=== PATIENT | male | born 1940 | race Caucasian/White ===

== ENCOUNTER 2017-02-14 15:28 | Observation (INO) | payer MEDICARE, SELFPAY ==
--- NOTE | 2017-02-14 | CA_ITS ---
PROCEDURE: 2-D M-mode and color Doppler study INDICATIONS FOR THE TEST: Chest pain COPD Heart Murmur Tobacco Smoking Palpitations Fatigue Syncope Edema+ Hypertension+Diabetes Mellitus+ Rheumatic Fever SOB HICKMAN Obesity+Hyperlipidemia+ Family History HD+ Additional History definity contrast utilized PATIENT INFORMATION HEIGHT: 64 WEIGHT:258 GENDER: Male B/P: 138/82 2-D/M-MODE INTERPRETATION: 2-D MEASUREMENTS OBSERVED VALUES IN CMS Right Ventricular Dimension (RVDd) Interventricular Septum (Thickness)(IVsd) 1.4 Left Ventricular Internal Dimensions(LVIDd) 4.1 Left Ventricular Posterior Wall (Thickness)(LVPWd) 1.4 Aortic Root 2.9 Aortic Cusp Separation 2.2 Left Atrial Dimensions (LAD) 5.2 2D 1. Left atrium is moderately enlarged, left ventricle is normal size, there is mild concentric left ventricular hypertrophy, visually estimated ejection fraction of 50% with no obvious regional wall motion abnormality, there is abnormal septal motion. 2. The right atrium and right ventricle are relatively normal size and function. 3. The aortic valve is minimally thickened and calcified 4. The mitral valve has mitral annular calcification. 5. The tricuspid valve is structurally normal. 6. The pulmonic valve is poorly visualized. 7. No significant pericardial effusion noted. DOPPLER INTERROGATION: Doppler interrogation of the aortic, mitral and tricuspid valvular presence of mild mitral and tricuspid regurgitation, tricuspid regurgitant jet velocity is insufficient for calculation of the right ventricular systolic pressure, grade 1 diastolic dysfunction seen without tissue Doppler evidence of raised left atrial pressure. CONCLUSION: 1. Moderately enlarged atrium, normal left ventricular size, mild concentric left ventricular hypertrophy, visually estimated ejection fraction 50% with no obvious regional wall motion abnormality, there is abnormal septal motion. Grade 1 diastolic dysfunction seen without tissue Doppler evidence of raised left atrial pressure. 2. Thickened and calcified aortic valve without Doppler evidence of aortic stenosis aortic insufficiency. 3. Mild mitral and tricuspid regurgitation. 4. No significant pericardial effusion noted.
--- NOTE | 2017-02-14 15:49 | XR_ITS ---
XR chest 2V HISTORY: Shortness of breath ITS.REASON: chf ORDERING PHYSICIAN: Zander Villegas MD PATIENT AGE: 76 years COMPARISON: 10/02/2014 FINDINGS: There is mild cardiomegaly without failure. No lobar consolidation or collapse. The pericardial fat pads noted on both sides. There is slight decrease in height anteriorly of T6, T7, and T8 age-indeterminate. No previous lateral available for comparison. IMPRESSION: 1. Mild cardiomegaly without failure. 2. Minimal wedging of T6, T7 and T8 age-indeterminate
[2017-02-14 16:01] VITALS: BMI 44.3
[2017-02-14 16:27] LABS: Basophils # 0.1 K/mm3 (0-0.2); Basophils % 0.8 % (0.1-2.0); Eosinophils # 0.4 K/mm3 (0.0-0.4); Eosinophils % 4.9 % (0.1-12.0); Hematocrit 37.8 % (42.0-52.0); Hemoglobin 12.3 g/dL (14.1-18.0); Lymphocytes # 2.8 K/mm3 (0.7-4.5); Lymphocytes % 34.9 K/mm3 (10-50); Mean Corpuscular HGB Conc 32.4 g/dL (31.8-35.4); Mean Corpuscular Hemoglobin 29.5 pg (27.0-31.2); Mean Platelet Volume 7.3 fl (7.4-10.4); Monocytes # 0.4 K/mm3 (0.1-1.0); Monocytes % 5.1 % (1.7-9.3); Neutrophils # 4.3 K/mm3 (1.8-7.8); Neutrophils % 54.3 % (37.0-80.0); Platelet Count 284 K/mm3 (142-424); Red Blood Count 4.15 M/mm3 (4.60-6.20); Red Cell Distribution Width 13.2 % (11.5-17.5); White Blood Count 7.9 K/mm3 (4.8-10.8)
--- NOTE | 2017-02-14 16:31 | HMH.CARDCON2 ---
History of Present Illness Consult date: 02/14/17 Requesting physician: Zander Villegas Consult reason: congestive heart failure Chief complaint: Edema, SOA History of present illness: 76-year-old white male with history of coronary artery disease, hypertension, diabetes mellitus and hyperlipidemia was admitted from outpatient setting for increasing lower extremity edema and mild shortness of breath over the last month. Patient states his normal weight is about 225-230 pounds and currently is around 250 pounds. Does admit to dietary indiscretion and a sedentary lifestyle. Patient denies any chest discomfort, pressure or tightness with activity. His previous coronary disease consists of myocardial infarction ?2 with subsequent stenting after both times. Each time he had significant chest discomfort that resolved with coronary stenting. His last stress test was about 3 years ago without need for intervention. He usually sees Dr. Vaz or Dr. Albarado in [place]. Cardiology consulted for evaluation and recommendation. Review of Systems - Constitutional Reports weight gain - *Cardiovascular Reports shortness of breath with activity, Reports foot swelling, Denies chest pain, Denies chest pain with activity - *Respiratory Reports shortness of breath with activity [facility] History Medical History: Reports:: Coronary Artery Disease, Diabetes Mellitus Type 1 (Treated for 25 years), Hyperlipidemia, Hypertension, Myocardial Infarction (Approximately 2009) Comment: He does have obstructive sleep apnea and uses a nasal CPAP. Other Surgeries: Yes: Colonoscopy Amputation: No Fractures: No - *Social History Smoking Status: Former smoker Alcohol Intake: never Substance Use Type: denies use *Family Hx:: Cancer, Coronary Artery Disease, Stroke Meds Home Medications Medication Instructions Recorded Confirmed Type amitriptyline 50 mg tablet 50 mg PO QHS tab 02/14/17 History atorvastatin 40 mg tablet 40 mg PO QDAY 02/14/17 History carvedilol 25 mg tablet 25 mg PO BID 02/14/17 History diltiazem CD 240 mg 240 mg PO ONCE 02/14/17 History capsule,extended release 24 hr fenofibrate 40 mg tablet 200 mg PO ONCE tab 02/14/17 History furosemide 80 mg tablet 40 mg PO QDAY 02/14/17 History insulin aspart 100 unit/mL 20 unit SUB-Q QAM 02/14/17 History subcutaneous solution insulin glargine 100 unit/mL 1 unit SUB-Q ONCE 02/14/17 History subcutaneous solution metformin 1,000 mg tablet 1,000 mg PO BID 02/14/17 History terazosin 1 mg capsule 1 mg PO QDAY 02/14/17 History Allergies Allergy/AdvReac Type Severity Reaction Status Date / Time aspirin [From Kathleen Aspirin] Allergy Mild Verified 02/14/17 13:54 From PLAVIX Allergy Unknown BLEEDING Uncoded 02/14/17 13:52 From RANEXA Allergy Unknown BLEEDING Uncoded 02/14/17 13:52 Morphine Allergy Unknown Uncoded 02/14/17 13:52 Promethazine Allergy Unknown Uncoded 02/14/17 13:52 Exam - *Routine Neck Exam Absent: carotid bruit - *Routine Cardiovascular Exam Present: RRR. Absent: murmur, rubs - *Routine Extremities Exam Comments: Taught 3+ pitting edema of the lower extremities. - *Routine Neurological Exam Present: alert, oriented X3, moving all extremities Results Patient Weight 02/15/17 11:59 Weight 258 lb 7 oz Assessment and Plan (1) Congestive heart failure of unknown etiology Current visit: Yes Status: Acute Category: Medical Code(s): I50.9 - Heart failure, unspecified Recommend switching p.o. Lasix to IV and continue at 80 mg but would increase to twice daily pending renal panel. Will obtain an echocardiogram to evaluate left ventricular size and function as well as valve status. Serial cardiac enzymes overnight to evaluate for myocardial infarction and if normal then recommend obtaining a Lexiscan Myoview to evaluate for an ischemic etiology and to follow-up on the patient's history of myocardial infarction with previous coronary niurka
--- NOTE | 2017-02-14 16:35 | P.CONS_ITS ---
History of Present Illness Consult date: 02/14/17 Requesting physician: Zander Villegas Consult reason: congestive heart failure Chief complaint: Edema, SOA History of present illness: 76-year-old white male with history of coronary artery disease, hypertension, diabetes mellitus and hyperlipidemia was admitted from outpatient setting for increasing lower extremity edema and mild shortness of breath over the last month. Patient states his normal weight is about 225-230 pounds and currently is around 250 pounds. Does admit to dietary indiscretion and a sedentary lifestyle. Patient denies any chest discomfort, pressure or tightness with activity. His previous coronary disease consists of myocardial infarction ?2 with subsequent stenting after both times. Each time he had significant chest discomfort that resolved with coronary stenting. His last stress test was about 3 years ago without need for intervention. He usually sees Dr. Vaz or Dr. Albarado in [place]. Cardiology consulted for evaluation and recommendation. Review of Systems - Constitutional Reports weight gain - *Cardiovascular Reports shortness of breath with activity, Reports foot swelling, Denies chest pain, Denies chest pain with activity - *Respiratory Reports shortness of breath with activity [facility] History Medical History: Reports:: Coronary Artery Disease, Diabetes Mellitus Type 1 ( Treated for 25 years), Hyperlipidemia, Hypertension, Myocardial Infarction ( Approximately 2009) Comment: He does have obstructive sleep apnea and uses a nasal CPAP. Other Surgeries: Yes: Colonoscopy Amputation: No Fractures: No - *Social History Smoking Status: Former smoker Alcohol Intake: never Substance Use Type: denies use *Family Hx:: Cancer, Coronary Artery Disease, Stroke Meds Home Medications Medication Instructions Recorded Confirmed Type amitriptyline 50 mg tablet 50 mg PO QHS tab 02/14/17 History atorvastatin 40 mg tablet 40 mg PO QDAY 02/14/17 History carvedilol 25 mg tablet 25 mg PO BID 02/14/17 History diltiazem CD 240 mg 240 mg PO ONCE 02/14/17 History capsule,extended release 24 hr fenofibrate 40 mg tablet 200 mg PO ONCE tab 02/14/17 History furosemide 80 mg tablet 40 mg PO QDAY 02/14/17 History insulin aspart 100 unit/mL 20 unit SUB-Q QAM 02/14/17 History subcutaneous solution insulin glargine 100 unit/mL 1 unit SUB-Q ONCE 02/14/17 History subcutaneous solution metformin 1,000 mg tablet 1,000 mg PO BID 02/14/17 History terazosin 1 mg capsule 1 mg PO QDAY 02/14/17 History Allergies Allergy/AdvReac Type Severity Reaction Status Date / Time aspirin [From Kathleen Aspirin] Allergy Mild Verified 02/14/17 13:54 From PLAVIX Allergy Unknown BLEEDING Uncoded 02/14/17 13:52 From RANEXA Allergy Unknown BLEEDING Uncoded 02/14/17 13:52 Morphine Allergy Unknown Uncoded 02/14/17 13:52 Promethazine Allergy Unknown Uncoded 02/14/17 13:52 Exam - *Routine Neck Exam Absent: carotid bruit - *Routine Cardiovascular Exam Present: RRR. Absent: murmur, rubs - *Routine Extremities Exam Comments: Taught 3+ pitting edema of the lower extremities. - *Routine Neurological Exam Present: alert, oriented X3, moving all extremities Results Patient Weight 02/15/17 11:59 Weight 258 lb 7 oz Assessment and Plan (1) Congestive heart failur
[2017-02-14 16:46] LABS: CKMB Relative Index 1.3 U/L (0-4.0); Creatine Kinase 253 U/L (39-308); Creatine Kinase MB 3.2 mg/ml (0.0-3.6); Troponin I < 0.02 ng/ml (0.00-0.06)
[2017-02-14 17:00] LABS: Alanine Aminotransferase 33 U/L (12-78); Albumin Level 4.1 gm/dL (3.4-5.0); Alkaline Phosphatase 42 U/L (46-116); Anion Gap 12.9 mEq/L (5-15); Aspartate Amino Transferase 28 U/L (15-37); Bilirubin,Total 0.3 mg/dL (0.2-1.0); Blood Urea Nitrogen 29 mg/dL (7-18); Calcium 9.2 mg/dL (8.5-10.1); Carbon Dioxide 29 mmol/L (21.0-32.0); Chloride 100 mmol/L (98-107); Creatinine Clearance Estimated 23 mg/ml (0-300); Creatinine,Serum 2.36 mg/dL (0.70-1.30); Estimated Glomerular Filt Rate 27 ml/min (>60); GFR (African American) 33 ML/MIN (>60); Globulin 4.2 gm/dl (1.3-3.2); Glucose 151 mg/dL (74-106); Potassium 3.9 mmoL/L (3.5-5.1); Sodium 138 mmol/L (136-145); Total Protein,Serum 8.3 gm/dL (6.4-8.2)
[2017-02-14 17:26] VITALS: BP 150/71; PULSE 74; RESP 20; TEMP 36.7; O2SAT 96
[2017-02-14 19:25] VITALS: O2SAT 96
[2017-02-14 19:57] LABS: CKMB Relative Index 1.3 U/L (0-4.0); Creatine Kinase 266 U/L (39-308); Creatine Kinase MB 3.4 mg/ml (0.0-3.6); Troponin I < 0.02 ng/ml (0.00-0.06)
[2017-02-14 20:00] VITALS: BP 165/86; PULSE 78; RESP 18; TEMP 36.6; O2SAT 96
[2017-02-14 22:39] LABS: CKMB Relative Index 1.1 U/L (0-4.0); Creatine Kinase 248 U/L (39-308); Creatine Kinase MB 2.8 mg/ml (0.0-3.6); Troponin I < 0.02 ng/ml (0.00-0.06)
[2017-02-15 00:38] LABS: POC Glucose,Bedside 307 mg/dL
[2017-02-15 04:00] VITALS: BP 105/64; PULSE 76; RESP 16; TEMP 36.8; O2SAT 96
--- NOTE | 2017-02-15 04:33 | PC.NURSE ---
PATIENT HAS BEEN SLEEPING ON AND OFF THIS SHIFT. HE HAS BEEN NPO SINCE MIDNIGHT IN PREPARATION FOR TEST IN AM. AT 0300 ROUNDS PATIENT DID STATE THAT HE WAS HAVING A DIFFICULT TIME SLEEPING BECAUSE HE DID NOT HAVE HIS CPAP FROM HOME. PATIENT WAS TOLD THAT ONCOMING SHIFT AND MD WILL BE NOTIFIED OF THIS IN AM. PATIENT IS CURRENTLY RESTING IN BED. NO OTHER PROBLEMS NOTED AT THIS TIME. VSS. WILL CONTINUE TO MONITOR. SAFETY MEASURES IN PLACE, CALL LIGHT IN REACH.
[2017-02-15 06:47] LABS: Basophils # 0.1 K/mm3 (0-0.2); Basophils % 0.6 % (0.1-2.0); Eosinophils # 0.4 K/mm3 (0.0-0.4); Eosinophils % 4.6 % (0.1-12.0); Hematocrit 36.9 % (42.0-52.0); Hemoglobin 11.7 g/dL (14.1-18.0); Lymphocytes # 3.1 K/mm3 (0.7-4.5); Lymphocytes % 35.4 K/mm3 (10-50); Mean Corpuscular HGB Conc 31.6 g/dL (31.8-35.4); Mean Corpuscular Hemoglobin 28.8 pg (27.0-31.2); Mean Corpuscular Volume 90.9 fl (80-94); Mean Platelet Volume 7.5 fl (7.4-10.4); Monocytes # 0.5 K/mm3 (0.1-1.0); Monocytes % 5.3 % (1.7-9.3); Neutrophils # 4.7 K/mm3 (1.8-7.8); Neutrophils % 54.1 % (37.0-80.0); Platelet Count 277 K/mm3 (142-424); Red Blood Count 4.06 M/mm3 (4.60-6.20); Red Cell Distribution Width 13.3 % (11.5-17.5); White Blood Count 8.8 K/mm3 (4.8-10.8)
[2017-02-15 06:50] LABS: POC Glucose,Bedside 168 mg/dL
[2017-02-15 07:02] LABS: Alanine Aminotransferase 33 U/L (12-78); Albumin Level 3.8 gm/dL (3.4-5.0); Alkaline Phosphatase 35 U/L (46-116); Anion Gap 9.6 mEq/L (5-15); Aspartate Amino Transferase 27 U/L (15-37); Bilirubin,Total 0.4 mg/dL (0.2-1.0); Blood Urea Nitrogen 30 mg/dL (7-18); Carbon Dioxide 30 mmol/L (21.0-32.0); Chloride 102 mmol/L (98-107); Chol/HDL Ratio 5.9 (1-3.5); Cholesterol 178 mg/dL (140-200); Creatinine Clearance Estimated 22 mg/ml (0-300); Estimated Glomerular Filt Rate 27 ml/min (>60); GFR (African American) 32 ML/MIN (>60); Glucose 162 mg/dL (74-106); HDL Cholesterol 30 mg/dL (27-67); LDL Cholesterol 97 mg/dL (0-130); Magnesium 2.2 mg/dL (1.4-2.2); Phosphorous 3.6 mg/dL (2.4-4.9); Potassium 3.6 mmoL/L (3.5-5.1); Sodium 138 mmol/L (136-145); Total Protein,Serum 7.8 gm/dL (6.4-8.2); Triglycerides 256 mg/dL (30-200); VLDL Cholesterol 51 mg/dL (0-40)
--- NOTE | 2017-02-15 07:46 | P.CONPHA_ITS ---
[facility] Pharmacy VTE Monitoring - Patient Demographics Admission date: 02/14/17 Report Date: 02/15/17 Time: 07:46 Allergies/Adverse Reactions: aspirin [From Kathleen Aspirin] Allergy (Mild, Verified 02/14/17 13:54) From PLAVIX Allergy (Unknown, Uncoded 02/14/17 13:52) BLEEDING From RANEXA Allergy (Unknown, Uncoded 02/14/17 13:52) BLEEDING Morphine Allergy (Unknown, Uncoded 02/14/17 13:52) Promethazine Allergy (Unknown, Uncoded 02/14/17 13:52) Height: 1.63 m Weight: 113.908 kg Patient Problems: Current Active Problems Congestive heart failure of unknown etiology (Acute) Coronary artery disease (Chronic) Hypertension (Chronic) Hyperlipidemia (Chronic) Diabetes mellitus type 2 in obese (Acute) Obstructive sleep apnea (Acute) Obesity (Acute) - VTE Risk Labs: VTE Related Lab Results Hgb 11.7 g/dL (14.1-18.0) L 02/15/17 06:20 Hct 36.9 % (42.0-52.0) L 02/15/17 06:20 Plt Count 277 K/mm3 (142-424) 02/15/17 06:20 BUN 30 mg/dL (7-18) H 02/15/17 06:20 Creatinine 2.40 mg/dL (0.70-1.30) H 02/15/17 06:20 Estimated Creat Clear 22 mg/ml (0-300) 02/15/17 06:20 Clinical Trial Participant: No - Prophylaxis VTE Prophylaxis Ordered?: Yes Types of VTE Prophylaxis: TEDS Knee High, Refused
[2017-02-15 08:00] VITALS: RESP 18
--- NOTE | 2017-02-15 08:51 | HMH.CARDPN2 ---
Subjective PN (PG) Date: 02/15/17 Time: 07:30 Principal diagnosis: Edema, CHF, CAD Interval history: Patient off the floor for stress test. PN Exam ([facility] Owned) Vital signs: Temp Pulse Resp BP Pulse Ox 98.3 F 76 16 105/64 96 02/15/17 04:00 02/15/17 04:00 02/15/17 04:00 02/15/17 04:00 02/15/17 04:00 A/P Progress Note ([facility]) (1) Congestive heart failure of unknown etiology Status: Acute Assessment and plan: Good urine output overnight. Current Visit: Yes (2) Coronary artery disease Status: Chronic Assessment and plan: Troponins normal overnight. Stress test and echo scheduled for today. Current Visit: Yes (3) Hypertension Status: Chronic Assessment and plan: Controlled. Current Visit: Yes (4) Hyperlipidemia Status: Chronic Assessment and plan: LDL 97, HDL 51 on statin therapy. Current Visit: Yes (5) Diabetes mellitus type 2 in obese Status: Acute Current Visit: Yes (6) Obstructive sleep apnea Status: Acute Current Visit: Yes (7) Obesity Status: Acute Current Visit: Yes (8) Left bundle branch block (LBBB) on electrocardiogram Status: Acute Current Visit: Yes (9) CKD (chronic kidney disease) stage 3, GFR 30-59 ml/min Status: Acute Current Visit: Yes
--- NOTE | 2017-02-15 08:54 | P.PN_ITS ---
Subjective PN (PG) Date: 02/15/17 Time: 07:30 Principal diagnosis: Edema, CHF, CAD Interval history: Patient off the floor for stress test. PN Exam ([facility]) Vital signs: Temp Pulse Resp BP Pulse Ox 98.3 F 76 16 105/64 96 02/15/17 04:00 02/15/17 04:00 02/15/17 04:00 02/15/17 04:00 02/15/17 04:00 A/P Progress Note ([facility]) (1) Congestive heart failure of unknown etiology Status: Acute Assessment and plan: Good urine output overnight. Current Visit: Yes (2) Coronary artery disease Status: Chronic Assessment and plan: Troponins normal overnight. Stress test and echo scheduled for today. Current Visit: Yes (3) Hypertension Status: Chronic Assessment and plan: Controlled. Current Visit: Yes (4) Hyperlipidemia Status: Chronic Assessment and plan: LDL 97, HDL 51 on statin therapy. Current Visit: Yes (5) Diabetes mellitus type 2 in obese Status: Acute Current Visit: Yes (6) Obstructive sleep apnea Status: Acute Current Visit: Yes (7) Obesity Status: Acute Current Visit: Yes (8) Left bundle branch block (LBBB) on electrocardiogram Status: Acute Current Visit: Yes (9) CKD (chronic kidney disease) stage 3, GFR 30-59 ml/min Status: Acute Current Visit: Yes
--- NOTE | 2017-02-15 08:58 | PC.NURSE ---
pt off floor at this time.
--- NOTE | 2017-02-15 09:18 | HMH.ITSHM ---
AMITRIPTYLINE, ATORVASTATIN, TERAZOSIN, METFORMIN, INSULIN, FUROSEMIDE, FENOFIBRATEM CARVEDILOL, DILTIAZEM
--- NOTE | 2017-02-15 10:21 | PC.NURSE ---
pt off unit in lab support technician.
[2017-02-15 11:26] LABS: POC Glucose,Bedside 179 mg/dL
--- NOTE | 2017-02-15 13:40 | NVE_ITS ---
Venous Exam Indications: 729.81 Swelling of limb. IMPRESSIONS 1. There is no evidence of significant Reflux. 2. No evidence of deep or superficial vein thrombosis involving the right lower extremity 3. No evidence of deep or superficial vein thrombosis involving the left lower extremity History: Swelling of both lower extremities. Risk factors: Hypertension. Obese. Complete lower extremity venous duplex evaluation. Doppler flow study including spectral analysis, color and pimentel scale imaging. Location: Bedside. Patient status: Inpatient. CRITICAL FINDINGS - Reported to: Andrea GANDHI - Read back and verified. - 02/15/17 - 1415 - NONE Tables: Venous flow and imaging: + +-------+ + Location Overall Flow properties + +-------+ + Right common femoral Patent Normal phasicity; spontaneous; normal augmentation; compressible + +-------+ + Right saphenofemoral junction Patent Compressible + +-------+ + Right profunda femoral Patent Compressible + +-------+ + Right femoral Patent Normal phasicity; spontaneous; normal augmentation; compressible; no reflux + +-------+ + Right greater saphenous Patent Normal phasicity; spontaneous; normal augmentation; compressible + +-------+ + Right popliteal Patent Normal phasicity; spontaneous; normal augmentation; compressible + +-------+ + Right posterior tibial Patent Compressible + +-------+ + Right peroneal Patent Compressible + +-------+ + Right gastrocnemius Patent Compressible + +-------+ + Right soleal Patent Compressible + +-------+ + Left common femoral Patent Normal phasicity; spontaneous; normal augmentation; compressible + +-------+ + Left saphenofemoral junction Patent Compressible + +-------+ + Left profunda femoral Patent Compressible + +-------+ + Left femoral Patent Normal phasicity; spontaneous; normal augmentation; compressible + +-------+ +
--- NOTE | 2017-02-15 15:53 | HMH.HPDC ---
General - General Admission date: 02/14/17 Discharge date: 02/15/17 *Admission Date: 02/14/17 *Chief complaint: sob *History of present illness: 76-year-old white male with history of coronary artery disease, hypertension, diabetes mellitus and hyperlipidemia was admitted from outpatient setting for increasing lower extremity edema and mild shortness of breath over the last month. Patient states his normal weight is about 225-230 pounds and currently is around 250 pounds. Does admit to dietary indiscretion and a sedentary lifestyle. Patient denies any chest discomfort, pressure or tightness with activity. His previous coronary disease consists of myocardial infarction ?2 with subsequent stenting after both times. Each time he had significant chest discomfort that resolved with coronary stenting. His last stress test was about 3 years ago without need for intervention. He usually sees Dr. Vaz or Dr. Albarado in [place]. Cardiology consulted for evaluation and recommendation. [facility] History Medical History: Reports:: Coronary Artery Disease, Diabetes Mellitus Type 1 (Treated for 25 years), Diabetes Mellitus Type 2, Hyperlipidemia, Hypertension, Myocardial Infarction (Approximately 2009) Other Surgeries: Yes: Colonoscopy Amputation: No Fractures: No - *Social History Educational Level: Completed College Smoking Status: Former smoker Alcohol Intake: never Substance Use Type: denies use Occupational Status: retired Housing: house Household Members: none - Psychiatric History Expresses thoughts of harming self/others: None Suicide Plan Description: No Plan *Family Hx:: Cancer, Coronary Artery Disease, Stroke Review of Systems - Constitutional Reports weakness, Reports weight gain - *Cardiovascular Reports generalized swelling, Reports leg swelling - *Respiratory Reports chest congestion - *Musculoskeletal Reports muscle weakness Exam Vital signs and Labs for Last 24 Hours: Temp Pulse Resp BP Pulse Ox 98.3 F 76 18 105/64 96 02/15/17 04:00 02/15/17 04:00 02/15/17 08:00 02/15/17 04:00 02/15/17 04:00 Short CBC 02/14/17 02/15/17 Range/Units 16:15 06:20 WBC 7.9 8.8 (4.8-10.8) K/mm3 Hgb 12.3 L 11.7 L (14.1-18.0) g/dL Hct 37.8 L 36.9 L (42.0-52.0) % Plt Count 284 277 (142-424) K/mm3 BMP 02/14/17 02/15/17 16:15 06:20 Sodium 138 138 Potassium 3.9 3.6 Chloride 100 102 Carbon Dioxide 29 30 BUN 29 H 30 H Creatinine 2.36 H 2.40 H Glucose 151 H 162 H Calcium 9.2 9.0 Cardiac Enzymes 02/14/17 02/14/17 02/14/17 Range/Units 16:15 19:17 22:10 Total Creatine Kinase 253 266 248 (39-308) U/L CK-MB (CK-2) 3.2 3.4 2.8 (0.0-3.6) mg/ml Troponin I < 0.02 < 0.02 < 0.02 (0.00-0.06) ng/ml Liver Function 02/14/17 02/15/17 Range/Units 16:15 06:20 Total Bilirubin 0.3 0.4 (0.2-1.0) mg/dL AST 28 27 (15-37) U/L ALT 33 33 (12-78) U/L Alkaline Phosphatase 42 L 35 L (46-116) U/L Albumin 4.1 3.8 (3.4-5.0) gm/dL I & O for Last 24 hours: Intake & Output 02/13/17 02/14/17 02/15/17 02/16/17 11:59 11:59 11:59 11:59 Intake Total 0 / 0 Output Total 1450 / 1450 Balance -1450 / -1450 0 / 0 no acute distress - *Routine HEENT Exam Head: Present: normocephalic Eye: Present: PERRL ENT: Present: mucous membranes moist Comments: red devil - *Routine Neck Exam Present: supple, full ROM - *Routine Respiratory Exam Present: crackles - *Routine Cardiovascular Exam Present: RRR - *Routine Abdominal Exam Present: soft, normoactive bowel sounds - *Routine Extremities Exam Present: normal capillary refill (edema) Hospital Course Hospital Course: venous doppler- neg echo ef 50-55% cardiology consut- see note stop lisinopril cardiac work up neg Results Labs on day of discharge: Labs from last 24 hours 02/15/17 02/15/17 02/15/17 11:18 06:20 06:20 WBC 8.8 RBC 4.06 L Hgb
[2017-02-15 15:55] VITALS: BMI 42.8
--- NOTE | 2017-02-15 15:56 | P.SWB_ITS ---
General - General Admission date: 02/14/17 Discharge date: 02/15/17 *Admission Date: 02/14/17 *Chief complaint: sob *History of present illness: 76-year-old white male with history of coronary artery disease, hypertension, diabetes mellitus and hyperlipidemia was admitted from outpatient setting for increasing lower extremity edema and mild shortness of breath over the last month. Patient states his normal weight is about 225-230 pounds and currently is around 250 pounds. Does admit to dietary indiscretion and a sedentary lifestyle. Patient denies any chest discomfort, pressure or tightness with activity. His previous coronary disease consists of myocardial infarction ?2 with subsequent stenting after both times. Each time he had significant chest discomfort that resolved with coronary stenting. His last stress test was about 3 years ago without need for intervention. He usually sees Dr. Vaz or Dr. Albarado in [place]. Cardiology consulted for evaluation and recommendation. [facility] History Medical History: Reports:: Coronary Artery Disease, Diabetes Mellitus Type 1 ( Treated for 25 years), Diabetes Mellitus Type 2, Hyperlipidemia, Hypertension, Myocardial Infarction (Approximately 2009) Other Surgeries: Yes: Colonoscopy Amputation: No Fractures: No - *Social History Educational Level: Completed College Smoking Status: Former smoker Alcohol Intake: never Substance Use Type: denies use Occupational Status: retired Housing: house Household Members: none - Psychiatric History Expresses thoughts of harming self/others: None Suicide Plan Description: No Plan *Family Hx:: Cancer, Coronary Artery Disease, Stroke Review of Systems - Constitutional Reports weakness, Reports weight gain - *Cardiovascular Reports generalized swelling, Reports leg swelling - *Respiratory Reports chest congestion - *Musculoskeletal Reports muscle weakness Exam Vital signs and Labs for Last 24 Hours: Temp Pulse Resp BP Pulse Ox 98.3 F 76 18 105/64 96 02/15/17 04:00 02/15/17 04:00 02/15/17 08:00 02/15/17 04:00 02/15/17 04:00 Short CBC 02/14/17 02/15/17 Range/Units 16:15 06:20 WBC 7.9 8.8 (4.8-10.8) K/mm3 Hgb 12.3 L 11.7 L (14.1-18.0) g/dL Hct 37.8 L 36.9 L (42.0-52.0) % Plt Count 284 277 (142-424) K/mm3 BMP 02/14/17 02/15/17 16:15 06:20 Sodium 138 138 Potassium 3.9 3.6 Chloride 100 102 Carbon Dioxide 29 30 BUN 29 H 30 H Creatinine 2.36 H 2.40 H Glucose 151 H 162 H Calcium 9.2 9.0 Cardiac Enzymes 02/14/17 02/14/17 02/14/17 Range/Units 16:15 19:17 22:10 Total Creatine Kinase 253 266 248 (39-308) U/L CK-MB (CK-2) 3.2 3.4 2.8 (0.0-3.6) mg/ml Troponin I < 0.02 < 0.02 < 0.02 (0.00-0.06) ng/ml Liver Function 02/14/17 02/15/17 Range/Units 16:15 06:20 Total Bilirubin 0.3 0.4 (0.2-1.0) mg/dL AST 28 27 (15-37) U/L ALT 33 33 (12-78) U/L Alkaline Phosphatase 42 L 35 L (46-116) U/L Albumin 4.1 3.8 (3.4-5.0) gm/dL I & O for Last 24 hours: Intake & Output 02/13/17 02/14/17 02/15/17 02/16/17 11:59 11:59 11:59 11:59 Intake Total 0 / 0 Output Total 1450 / 1450 Maryam
[2017-02-15 16:00] VITALS: BP 125/66; PULSE 72; RESP 20; TEMP 36.7; O2SAT 96
--- NOTE | 2017-02-15 16:47 | NM_ITS ---
History and Indications: Coronary artery disease, hypertension, diabetes, hyperlipidemia and family history Procedure: Patient received a 0.4 mg of Lexiscan, resting heart rate was 78 bpm, resting blood pressure 135/73. With Lexiscan maximum heart rate achieved was 86 bpm which is less than 85% of the maximum predicted heart rate and a blood pressure was 129/64. With Lexiscan patient complained of shortness of breath Electrocardiogram: Resting electrocardiogram showed sinus rhythm left bundle-branch block, with Lexiscan less than 1.5 mm the segment depression noted from the baseline EKG. The EKG portion of the Lexiscan Myoview is nondiagnostic. Cardiac stress and resting SPECT images: Cardiac stress and rest SPECT images were obtained using technetium 99 Myoview 10.7 mCi at rest and 31.3 mCi at stress, gated SPECT further analysis of segmental wall motion and calculation of the ejection fraction also done. Cardiac stress and rest SPECT images show a mild fixed defect in the anteroseptal area with normal contractility in the gated SPECT is likely secondary to left bundle-branch block, no reversible ischemia seen. Computer derived ejection fraction is 59% with no obvious regional wall motion abnormality. Right ventricle is normal size and contractility. Conclusion: 1. The EKG portion of the Lexiscan Myoview is nondiagnostic. 2. No obvious scintigraphic evidence of reversible ischemia seen, a fixed defect seen anteroseptally with normal contractility on the gated SPECT is likely secondary to left bundle-branch block, no reversible ischemia seen. Computer derived ejection fraction 59% with no obvious regional wall motion abnormality, right ventricle is normal size and contractility.
[2017-02-15 19:43] VITALS: BP 115/63; PULSE 78; RESP 20; TEMP 37.1; O2SAT 94
[2017-02-15 21:30] VITALS: BP 148/77; PULSE 88; RESP 20; TEMP 36.8; O2SAT 95
[2017-02-16 04:01] LABS: POC Glucose,Bedside 163 mg/dL
[2017-02-16 04:02] LABS: POC Glucose,Bedside 257 mg/dL
== END 2017-02-15 21:35 | disposition home or self-care (01) ==
PROVIDERS: Nurse Practitioner Family; Physician Assistant; Admitting Provider Emergency Medicine; PCP Emergency Medicine; Visit Provider Emergency Medicine
DX: I13.0 Hypertensive heart and chronic kidney disease with heart failure and stage 1 through stage 4 chronic kidney disease, or unspecified chronic kidney disease (principal); N18.3 Chronic kidney disease, stage 3 (moderate); E11.22 Type 2 diabetes mellitus with diabetic chronic kidney disease; I50.9 Heart failure, unspecified; I25.10 Atherosclerotic heart disease of native coronary artery without angina pectoris
CPT/HCPCS: 36415; 71046; 78452; 80053; 80061; 82550; 82553; 82962; 83735; 83880; 84100; 84484; 85025; 93005; 93017; 93306; 93970; A9502; G0378; J2785

== ENCOUNTER → 2017-04-11 14:33 | Outpatient (POV) | payer MEDICARE, SELFPAY | PROVIDERS: PCP Emergency Medicine; Visit Provider Internal Medicine Nephrology | DX: Z00.00 Encounter for general adult medical examination without abnormal findings (principal) ==

== ENCOUNTER → 2017-05-27 15:33 | Outpatient (POV) | payer MEDICARE, SELFPAY | PROVIDERS: Visit Provider Internal Medicine Nephrology | DX: Z00.00 Encounter for general adult medical examination without abnormal findings (principal) ==

== ENCOUNTER → 2017-09-12 14:36 | Outpatient (POV) | payer MEDICARE, SELFPAY | PROVIDERS: Visit Provider Internal Medicine Nephrology | DX: Z00.00 Encounter for general adult medical examination without abnormal findings (principal) ==

== ENCOUNTER → 2018-03-31 13:47 | Outpatient (POV) | payer MEDICARE, SELFPAY | PROVIDERS: Visit Provider Internal Medicine Nephrology | DX: Z00.00 Encounter for general adult medical examination without abnormal findings (principal) ==

== ENCOUNTER 2019-03-01 16:32 | Observation (INO) ==
--- NOTE | 2019-03-01 17:38 | Emergency Department Note ---
ED Disposition Clinical Impression: Generalized weakness, Hyponatremia, Peripheral edema, Type 2 diabetes mellitus with hyperosmolar nonketotic hyperglycemia Chronic kidney disease Qualifiers: Chronic kidney disease stage: unspecified stage Qualified Code(s): N18.9 - Chronic kidney disease, unspecified Disposition: Admitted as Observation Condition on Discharge: Fair (Stable) Time of Disposition: 19:15 - Critical Care Critical Care Time: No Attestation: On 03/01/19, the high probability of a clinically significant, sudden or life threatening deterioration of the following system(s) required my full and direct attention, intervention and personal management. The time I documented below is in addition to time spent performing reported procedures but includes the following listed in this critical care notation. Medical Decision Making - Medical Records Medical records reviewed: Yes: I reviewed the patient's medical records. - Macho Inquiry Pt receiving controlled substance: No Macho was queried for this patient: No Vital Signs: 03/01/19 16:40 03/01/19 18:51 03/01/19 19:57 Temperature 98.0 F 98.1 F Temperature Source Oral Oral Pulse Rate 81 Pulse Rate [Left Radial] 125 H 107 H Respiratory Rate 18 20 19 Blood Pressure 172/75 H Blood Pressure [Left Arm] 134/79 129/91 H Blood Pressure Mean [Left Arm] 97 103 Blood Pressure Source Automatic Cuff Blood Pressure Source [Left Arm] Automatic Cuff Automatic Cuff Blood Pressure Position Sitting Blood Pressure Position [Left Arm] Sitting Sitting 02 Sat by Pulse Oximetry 97 98 Oxygen Delivery Method Room Air Room Air Room Air Oxygen Flow Rate (LPM) 0 - Lab Data Lab results reviewed: Yes: I reviewed the patient's lab results. Lab Results 03/01/19 17:35: WBC 8.1, RBC 5.16, Hgb 15.2, Hct 46.6, MCV 90.3, MCH 29.5, MCHC 32.6, RDW 13.3, Plt Count 195, MPV 7.7, Neut % (Auto) 71.3, Lymph % (Auto) 21.7, [place] % (Auto) 4.3, Eos % (Auto) 2.2, Baso % (Auto) 0.4, Neut # (Auto) 5.8, Lymph # (Auto) 1.8, [place] # (Auto) 0.4, Eos # (Auto) 0.2, Baso # (Auto) 0.0 03/01/19 17:35: Sodium 128 L, Potassium 4.1, Chloride 92 L, Carbon Dioxide 25, Anion Gap 15.1 H, BUN 32 H, Creatinine 2.28 H, Estimated Creat Clear 35, Estimated GFR 28 L, Est GFR ( Amer) 34 L, Glucose 609 H*, Calcium 8.9, Total Bilirubin 0.5, AST 14 L, ALT 18, Alkaline Phosphatase 121 H, Troponin I < 0.02, Total Protein 6.9, Albumin 3.4, Globulin 3.5 H, Albumin/Globulin Ratio 1.0 L, TSH 2.89 03/01/19 17:35: Magnesium 1.8 03/01/19 17:35: B-Natriuretic Peptide 109 H 03/01/19 17:35: Total Creatine Kinase 137, Acetone Level None detected 03/01/19 18:53: Urine Color Yellow, Urine Appearance Clear, Urine pH 5.5, Ur Specific [place] 1.015, Urine Protein 2+, Urine Glucose (UA) 3+, Urine Ketones Negative, Urine Blood 1+, Urine Nitrate Negative, Urine Bilirubin Negative, Urine Urobilinogen 0.2, Ur Leukocyte Esterase Negative, Urine RBC 3-5, Ur Squa mous Epith Cells Occasional 03/01/19 19:20: Troponin I < 0.02 03/01/19 19:20: Lactate 1.5 Result diagrams: 03/01/19 17:35 03/01/19 17:35 Orders (Tests/Meds): ED MEDICATIONS Generic Name Dose Route Start Last Admin Trade Name Kenroyq PRN Reason Stop Dose Admin Aspirin 81 mg 03/02/19 09:00 Aspirin 81mg Enteric Coated Tablet PO 04/01/19 08:59 DAILY [facility] Atorvastatin Calcium 40 mg 03/01/19 21:00 Lipitor 40mg Tablet PO 03/31/19 20:59 HS [facility] Carvedilol 25 mg 03/01/19 21:00 Coreg 25mg Tablet PO 03/31/19 20:59 BID [facility] Diltiazem HCl 240 mg 03/02/19 09:00 Cardizem Er 240mg Capsule PO 04/01/19 08:59 DAILY [facility] Sodium Chloride 1,000 mls @ 999 mls/hr 03/01/19 17:45 03/01/19 17:43 Sod Chlor 0.9% 1000ml Bag IV 03/01/19 18:45 999 mls/hr .Q1H1M [facility] Administration Sodium Chloride 1,000 mls @ 80 mls/hr 03/01/19 19:30 Sod Chlor 0.9% 1000ml Bag IV 03/31/19 19:29 .[id number] [facility] Insulin Human Lispro 0 unit 03/01/19 21:00 Humalog 100 Units/Ml 3ml Vial (Ssi) SQ 03/31/19 20:59 ACHS [facility] Protocol Non-Formulary Medication 200 mg 03/02/19 09:00 Fenofibrate,Micronized [Fenofibrate] PO 04/01/19 08:59 DAILY [facility] Non-Formulary Medication 40 unit 03/01/19 21:00 Insulin Glargine,Hum.Rec.Anlog [Toujeo Solostar] SQ 03/31/19 20:59 HS [facility] Ondansetron HCl 4 mg 03/01/19 19:16 Zofran 4mg/2ml Vial IV 03/31/19 19:15 Q8HP PRN Nausea Discontinued Medications Generic Name Dose Route Start Last Admin Trade Name Freq PRN Reason Stop Dose Admin Insulin Human Regular 12 unit 03/01/19 18:52 03/01/19 18:56 Humulin R Insulin 100 Units/Ml 10ml Vial IVP 03/01/19 18:53 12 unit ONCE ONE Administration ORDERS Category Date Time Status XR hip LT 2-3V w/pelvis Stat Exams 03/01/19 16:54 Taken Basic Metabolic Panel AMLAB Lab 03/02/19 06:00 Ordered Troponin I Q3H Lab 03/01/19 23:00 Ordered - CT Data CT Scan: Head (w/o IV contrast) Time Received: 18:[address] Reviewed: Yes: I have viewed the radiologist's interpretation Findings Narrative: [facility] [address] [place] [address] [place] Scan Report Signed Patient: Erich Augustine MR#: [id number] : 1940 Acct:[id number] Age/Sex: 78 / M ADM Date: 03/01/19 Loc: ER Attending Dr: Ordering Physician: Nixon Cote III, DO Date of Service: 03/01/19 Procedure(s): CT head/brain wo con Accession Number(s): [id number] cc: Brian Hidalgo ; Nixon Cote III DO; Zadner Villegas MD~ PROCEDURE: CT HEAD/BRAIN WO CON CLINICAL INDICATION: Weakness, frequent falls COMPARISON: No exams were available for comparison TECHNIQUE: Axial images obtained. All CT scans at the facility use one or more dose reduction, viz: automated exposure control, ma/kV adjustment per patient size (including targeted exams where dose is matched to indication, i.e. head), or iterative reconstruction technique. FINDINGS: No midline shift, mass effect, intracranial hemorrhage, hydrocephalus, or extra-axial fluid collection is evident. There is mild or borderline ventriculomegaly. The sylvian fissures and cortical sulci are somewhat prominent. There are mild atrophic changes of the cerebellar hemispheres. There is a non recent ischemic infarct high in the right frontal parietal lobe adjacent to the frontal horn right lateral ventricle. There are mild periventricular hypodensities consistent with chronic ischemic white matter changes. The calvarium has an unremarkable appearance. No mastoid effusion. No sinus air-fluid level. IMPRESSION: Findings of moderate cerebral and and mild cerebellar atrophy, non recent ischemic infarct as described, no acute intra cranial pathology noted Dictated by: Dr. Heber Hidalgo MD 03/01/2019 18:[address] Heber Hidalgo MD in [place] 03/01/2019 18:32 - ECG Data Tracing #1 I reviewed this ECG and interpreted as documented below: (EKG 5:44 PM showed sinus tachycardia, changes consistent with possible left atrial enlargement, nonspecific intraventricular block and T wave changes possibly consistent with lateral ischemia. Heart rate was 120 bpm.) Medical Decision Narrative: 18:56 patient evaluated. EKG and chest x-ray reviewed. CT head report reviewed and no acute changes noted. Patient is labs reviewed and he is noted to have hypo-natremia at 128 and hypochloremia at 92. His anion gap is 15.1. Patient clinically appears to be dry. He has chronic kidney disease and his BUN is 32 and creatinine 2.28 today. X-ray of left hip and pelvis do not show any apparent fracture upon my review. IV fluids are infusing. I have subsequently ordered a lactic acid and a CPK on this patient. Patient's glucose was elevated over 600 so I did order 12 units of regular insulin IV push. I have paged Dr. Corral to discuss admission. 19:[address] Corral and he has agreed to admit pt. Patient is aware of results of his work-up, diagnosis and care plan. Patient understands and agrees. All questions answered. Fall HPI - General Chief Complaint: Fall Stated Complaint: weakness,pain in legs Time Seen by Provider: 03/01/19 17:38 Mode of Arrival: Wheelchair Limitations: No Limitations Description of Symptoms (Recalled from ER Triage Doc. by RN): Pt reporting generalized weakness, being off balance, falls x2 in the past week and LLE pain. Abrasion noted to L valente area r/t fall. Pt report most recent fall was yesterday in the bath tub. 2+ edema noted to BLE - History of Present Illness HPI Narrative: Patient is here in emergency room from home via private vehicle accompanied by friends that brought him here. Patient is here complaining having generalized weakness that sounds like it has been developing over the past 2 to 3 weeks. Patient states that he feels off balance all the time and has been having difficulty ambulating. Patient states he fell a couple weeks ago and then several days ago outside. He was unable to get up when he fell several days ago and needed assistance from a person passing by. Patient also fell in his tub 2 weeks ago as noted above. Patient denies having sustained a head injury in either fall. He has no headache or neck pain no chest pain or shortness of breath. Patient has not been taking his medicines over the past couple days as prescribed although he has continued to eat. He also is complaining having some discomfort in the left lateral hip and proximal thigh area, which began after his latest fall outside. No other complaints. - Related Data Home Medications Medication Instructions Recorded Confirmed atorvastatin 40 mg tablet 40 mg PO HS 02/14/17 03/01/19 carvedilol 25 mg tablet 25 mg PO BID 02/14/17 03/01/19 diltiazem HCl 240 mg 240 mg PO DAILY 02/14/17 03/01/19 capsule,extended release 24 hr furosemide 80 mg tablet 80 mg PO QDAY 02/14/17 03/01/19 Fenofibrate,Micronized 200 mg PO DAILY 02/15/17 03/01/19 [Fenofibrate] Aspirin [Aspir 81] 81 mg PO DAILY 03/01/19 03/01/19 Insulin Glargine,Hum.rec.anlog 0 unit SQ DIRECTED 03/01/19 03/01/19 [Toukarey Solostar] Allergies Allergy/AdvReac Type Severity Reaction Status Date / Time aspirin [From Kathleen Aspirin] Allergy Mild Verified 03/01/19 17:03 From PLAVIX Allergy Unknown BLEEDING Uncoded 02/19/17 11:01 From RANEXA Allergy Unknown BLEEDING Uncoded 02/19/17 11:01 Morphine Allergy Unknown Uncoded 02/19/17 11:01 Promethazine Allergy Unknown Uncoded 02/19/17 11:01 [facility] History - Hepatitis A Screen Drug use history?: No High risk sexual behaviors?: No History of sexually transmitted infection?: No Currently employed?: No Childcare worker?: No Do you have indoor plumbing?: Yes Do you have electricity?: Yes Attestation statement:: This patient has been screened for Hepatitis A risk factors. I have reviewed the patient's past medical history: Yes Medical History: Reports:: Cancer (colon), Coronary Artery Disease, Diabetes Mellitus Type 1, Diabetes Mellitus Type 2, Hyperlipidemia, Hypertension, M yocardial Infarction Comment: He does have obstructive sleep apnea and uses a nasal CPAP. Other Surgeries: Yes: Cardiac Catheterization, Colonoscopy, Coronary Stent Amputation: No Fractures: No Comment: stents in heart, gallbladder, reconstruction of ear drum, colon surgery, right wrist - Social History Smoking Status: Former smoker Alcohol Intake: never Substance Use Type: denies use Occupational Status: retired Housing: house Household Members: none Family Hx:: Cancer, Coronary Artery Disease, Stroke ROS Obtained: Yes All systems reviewed & no additional complaints - Constitutional Constitutional: Reports system reviewed and no additional complaints, except as docu, Reports as per HPI, Reports fatigue, Reports frequent falls, Denies headache(s) - Eyes Eyes: Reports system reviewed and no additional complaints, except as docu - ENT Ears, Nose, Mouth, and Throat: Reports system reviewed and no additional complaints, except as docu - Cardiovascular Cardiovascular: Reports system reviewed and no additional complaints, except as docu, Reports as per HPI, Denies chest pain, Reports leg edema (Increase in lower leg and foot swelling.) - Respiratory Respiratory: Yes system reviewed and no additional complaints, except as docu, Yes as per HPI, No cough, No dyspnea - Gastrointestinal Gastrointestingal: Reports: system reviewed and no additional complaints, except as docu. Denies: abdominal pain, constipation, diarrhea, nausea, vomiting - Genitourinary Male Genitourinary: Reports system reviewed and no additional complaints, except as docu - Musculoskeletal Musculoskeletal: Reports system reviewed and no additional complaints, except as docu, Reports as per HPI, Reports other (Left hip and proximal/lateral left thigh pain.) - Integumentary/Breasts Skin/Breast: Reports system reviewed and no additional complaints, except as docu, Reports dry skin, Denies rash - Neurologic Neurologic: Reports system reviewed and no additional complaints, except as docu, Reports as per HPI, Reports unsteadiness, Reports weakness (generalized) - Endocrine Endocrine: Reports system reviewed and no additional complaints, except as docu - Hematologic/Lymphatic Henatologic/Lymphatic: Reports system reviewed and no additional complaints, except as docu - Allergic/Immunologic Allergic/Immunologic: Reports system reviewed and no additional complaints, except as docu Physical Exam - General General appearance: alert, in no apparent distress - Head Head exam: atraumatic, normocephalic, normal inspection - Eye Eye exam: Present: PERRL, EOMI - ENT ENT exam: Present: mucous membranes dry - Neck Neck exam: Present: trachea midline - Chest Chest inspection: Present: normal inspection, symmetric chest wall rise - Respiratory Respiratory exam: Present: normal lung sounds bilaterally. Absent: respiratory distress, wheezes - Cardiovascular Cardiovascular exam: Present: tachycardia, normal heart sounds. Absent: rubs, gallop, clicks - Abdominal Exam Abdominal exam: Present: soft, normal bowel sounds. Absent: distention, tenderness, guarding, rebound, rigidity, Gregory's sign, tenderness at McBurney's Point - Extremities Exam Extremities exam: Present: full ROM, normal capillary refill, other (Patient has 3-4+ pitting edema to the distal two thirds of his legs bilaterally.) - Back Exam Back exam: Present: normal inspection - Neurological Exam Neurological exam: Present: alert, oriented X3, CN II-XII intact - Psychiatric Psychiatric exam: Present: normal affect, normal mood - Skin Skin exam: Present: warm, dry, intact, other (Decreased turgor). Absent: rash
[2019-03-01 17:49] LABS: Basophils % 0.4 % (0.1-2.0); Eosinophils # 0.2 K/mm3 (0.0-0.4); Eosinophils % 2.2 % (0.1-12.0); Hematocrit 46.6 % (42.0-52.0); Hemoglobin 15.2 g/dL (14.1-18.0); Lymphocytes # 1.8 K/mm3 (0.7-4.5); Lymphocytes % 21.7 % (10-50); Mean Corpuscular HGB Conc 32.6 g/dL (31.8-35.4); Mean Corpuscular Volume 90.3 fl (80-94); Mean Platelet Volume 7.7 fl (7.4-10.4); Monocytes # 0.4 K/mm3 (0.1-1.0); Monocytes % 4.3 % (1.7-9.3); Neutrophils # 5.8 K/mm3 (1.8-7.8); Neutrophils % 71.3 % (37.0-80.0); Platelet Count 195 K/mm3 (142-424); Red Blood Count 5.16 M/mm3 (4.60-6.20); Red Cell Distribution Width 13.3 % (11.5-17.5); White Blood Count 8.1 K/mm3 (4.8-10.8)
[2019-03-01 18:10] LABS: Alanine Aminotransferase 18 U/L (12-78); Albumin Level 3.4 gm/dL (3.4-5.0); Alkaline Phosphatase 121 U/L (46-116); Anion Gap 15.1 mEq/L (5-15); Aspartate Amino Transferase 14 U/L (15-37); Bilirubin,Total 0.5 mg/dL (0.2-1.0); Blood Urea Nitrogen 32 mg/dL (7-18); Calcium 8.9 mg/dL (8.5-10.1); Carbon Dioxide 25 mmol/L (21.0-32.0); Chloride 92 mmol/L (98-107); Globulin 3.5 gm/dl (1.3-3.2); Sodium 128 mmol/L (136-145); Thyroid Stimulating Hormone 2.89 uIU/ml (0.358-3.740); Total Protein,Serum 6.9 gm/dL (6.4-8.2)
[2019-03-01 18:14] LABS: Glucose 609 mg/dL (74-106)
[2019-03-01 18:43] LABS: Acetone, Serum (Rapid) None Detected (None Detect)
[2019-03-01 19:04] LABS: Microscopic, Urine URINE MICROSCOPIC (MICROSCOPIC)
[2019-03-01 19:07] LABS: Appearance,Urine CLEAR (Clear); Bilirubin,Urine Negative (Negative); Blood, Urine 1+ (Negative); Color,Urine YELLOW (Yellow); Glucose,Urine (UA) 3+ (Negative); Ketones,Urine Negative (Negative); Leukocyte Esterase,Urine Negative (Negative); PH,Urine 5.5 (5.0-8.5); Protein,Urine 2+ (Negative); Specific Gravity, Urine 1.015 (1.005-1.030); Urobilinogen,Urine 0.2 EU/dl (0.2)
[2019-03-01 19:13] LABS: Creatine Kinase 137 U/L (39-308)
[2019-03-01 19:15] LABS: Squamous Epithelial Cell,Urine Occasional #/hpf (0-5)
[2019-03-02 06:25] LABS: Anion Gap 10.5 mEq/L (5-15); Calcium 8.2 mg/dL (8.5-10.1)
--- NOTE | 2019-03-02 07:21 | Pharmacy Consult Notes ---
[facility] Pharmacy VTE Monitoring - Patient Demographics Admission date: 03/01/19 Report Date: 03/02/19 Time: 07:20 Allergies/Adverse Reactions: Patient Allergies aspirin [From Kathleen Aspirin] Adverse Reaction (Mild, Verified 03/01/19 21:22) Abdominal Pain From PLAVIX Adverse Reaction (Severe, Uncoded 03/01/19 21:22) Chest Pain From RANEXA Adverse Reaction (Intermediate, Uncoded 03/01/19 21:22) Vomiting Morphine Adverse Reaction (Intermediate, Uncoded 03/01/19 21:22) diaphoretic Promethazine Adverse Reaction (Intermediate, Uncoded 03/01/19 21:22) Vomiting Height: 1.63 m Weight: 93.242 kg Patient Problems: Current Active Problems Generalized weakness (Acute) Hyponatremia (Acute) Chronic kidney disease (Acute) Peripheral edema (Acute) Type 2 diabetes mellitus with hyperosmolar nonketotic hyperglycemia (Acute) - VTE Risk Labs: VTE Related Lab Results Hgb 15.2 g/dL (14.1-18.0) 03/01/19 17:35 Hct 46.6 % (42.0-52.0) 03/01/19 17:35 Plt Count 195 K/mm3 (142-424) 03/01/19 17:35 BUN 30 mg/dL (7-18) H 03/02/19 05:36 Creatinine 1.85 mg/dL (0.70-1.30) H 03/02/19 05:36 Estimated Creat Clear 44 mL/min (50-200) 03/02/19 05:36 Was VTE Risk Assessment Performed: Yes VTE Score: 12 VTE Risk Level: Moderate Risk - Prophylaxis VTE Prophylaxis Ordered?: Yes Types of VTE Prophylaxis: TEDS Knee High Location of Applied Device: Bilateral Lower Extremeties - VTE Diagnosis Confirmed Treatment or plan recommended: Continue Current Treatment
--- NOTE | 2019-03-02 08:00 | H&P/Discharge Summary ---
General - General Admission date:: 03/01/19 Discharge date: 03/02/19 *Admission Date: 03/01/19 *Chief complaint: weakness *History of present illness: 78 yr old male Patient presented to emergency room from home. Patient is here complaining having generalized weakness that sounds like it has been developing over the past 2 to 3 weeks. Patient states that he feels off balance all the time and has been having difficulty ambulating. Patient states he fell a couple weeks ago and then several days ago outside. Patient has not been taking his medicines over the past couple days as prescribed although he has continued to eat. Pt admitted for eval. [facility] History I have reviewed the patient's past medical history: Yes Medical History: Reports:: Cancer (colon), Coronary Artery Disease, Diabetes Mellitus Type 2, Hyperlipidemia, Hypertension, Myocardial Infarction Denies:: Diabetes Mellitus Type 1 *Have you ever received a pneumonia vaccine?: No *Have you received a flu vaccine this season?: No Other Medical History: Reports: Arthritis, Cataracts (right) Other Surgeries: Yes: Appendectomy, Cardiac Catheterization, Colonoscopy, Colon Resection, Colostomy (and revision), Coronary Stent, EGD Amputation: No Fractures: No - *Social History Educational Level: Completed College Smoking Status: Former smoker Tobacco Type: cigarettes # Packs/Day (cigarettes): 3 #Yrs smoked (if former smoker): 25 Alcohol Intake: former Substance Use Type: denies use *Occupational Status:: retired Housing: house Household Members: none *Travel in the last 8 weeks: None Family Hx:: Cancer, Coronary Artery Disease, Stroke Review of Systems - Review of Systems Review of systems:: pertinent systems reviewed and negative unless documented below - Constitutional Denies body ache(s), Denies fatigue - Eyes Denies change in vision, Denies floaters - ENT Denies bleeding gums, Denies post nasal drip - *Cardiovascular Denies chest pain with activity, Denies excessive sweating - *Respiratory Denies chest congestion, Denies excessive phlegm production - *Gastrointestinal Denies nausea, Denies vomiting - *Neurologic Reports unsteadiness, Reports localized weakness, Reports frequent falls, Reports weakness (generalized), Denies abnormal hearing, Denies headache(s) - Psychiatric Denies anxiety - Endocrine Denies excessive sweating - Hematologic/Lymphatic Denies enlarged lymph nodes - Allergic/Immunologic Denies itchy eyes Exam Vital signs and Labs for Last 24 Hours: Temp Pulse Resp BP Pulse Ox 97.9 F 76 17 107/68 L 98 03/02/19 04:00 03/02/19 04:00 03/02/19 04:00 03/02/19 04:00 03/02/19 04:00 Laboratory Results - last 24 hr 03/01/19 17:35: WBC 8.1, RBC 5.16, Hgb 15.2, Hct 46.6, MCV 90.3, MCH 29.5, MCHC 32.6, RDW 13.3, Plt Count 195, MPV 7.7, Neut % (Auto) 71.3, Lymph % (Auto) 21.7, [place] % (Auto) 4.3, Eos % (Auto) 2.2, Baso % (Auto) 0.4, Neut # (Auto) 5.8, Lymph # (Auto) 1.8, [place] # (Auto) 0.4, Eos # (Auto) 0.2, Baso # (Auto) 0.0 03/01/19 17:35: Sodium 128 L, Potassium 4.1, Chloride 92 L, Carbon Dioxide 25, Anion Gap 15.1 H, BUN 32 H, Creatinine 2.28 H, Estimated Creat Clear 35, Estimated GFR 28 L, Est GFR ( Amer) 34 L, Glucose 609 H*, Calcium 8.9, Total Bilirubin 0.5, AST 14 L, ALT 18, Alkaline Phosphatase 121 H, Troponin I < 0.02, Total Protein 6.9, Albumin 3.4, Globulin 3.5 H, Albumin/Globulin Ratio 1.0 L, TSH 2.89 03/01/19 17:35: Magnesium 1.8 03/01/19 17:35: B-Natriuretic Peptide 109 H 03/01/19 17:35: Total Creatine Kinase 137, Acetone Level None detected 03/01/19 18:53: Urine Color Yellow, Urine Appearance Clear, Urine pH 5.5, Ur Specific [place] 1.015, Urine Protein 2+, Urine Glucose (UA) 3+, Urine Ketones Negative, Urine Blood 1+, Urine Nitrate Negative, Urine Bilirubin Negative, Urine Urobilinogen 0.2, Ur Leukocyte Esterase Negative, Urine RBC 3-5, Ur Squamous Epith Cells Occasional 03/01/19 19:20: Troponin I < 0.02 03/01/19 19:20: Lactate 1.5 03/01/19 20:28: POC Glucose 275 H 03/01/19 23:05: Troponin I < 0.02 03/02/19 05:34: POC Glucose 216 H 03/02/19 05:36: Sodium 135 L, Potassium 3.5, Chloride 102, Carbon Dioxide 26, Anion Gap 10.5, BUN 30 H, Creatinine 1.85 H, Estimated Creat Clear 44, Estimated GFR 36 L, Est GFR ( Amer) 43 L D, Glucose 229 H D, Calcium 8.2 L I & O for Last 24 hours: Intake & Output 02/27/19 02/28/19 03/01/19 03/02/19 11:59 11:59 11:59 11:59 Intake Total 1638 / 1638 Output Total 200 / 200 Balance 1438 / 1438 Weight 205 lb 9 oz - Constitutional no acute distress - *Routine HEENT Exam Head: Present: normocephalic Eye: Present: PERRL ENT: Present: mucous membranes moist - *Routine Neck Exam Present: supple. Absent: lymphadenopathy - *Routine Respiratory Exam Present: CTA bilaterally - *Routine Cardiovascular Exam Present: RRR - *Routine Abdominal Exam Present: soft, normoactive bowel sounds. Absent: tenderness - *Routine Extremities Exam Present: full ROM, normal capillary refill. Absent: cyanosis, clubbing, edema - *Routine Skin Exam Present: warm. Absent: rash - *Routine Neurological Exam Present: alert, oriented X3 - Routine Psychiatric Exam Present: normal affect Hospital Course Hospital Course: Abnormal Lab Results 03/01/19 17:35: Sodium 128 L, Chloride 92 L, Anion Gap 15.1 H, BUN 32 H, Creatinine 2.28 H, Estimated GFR 28 L, Est GFR ( Amer) 34 L, Glucose 609 H*, AST 14 L, Alkaline Phosphatase 121 H, Globulin 3.5 H, Albumin/Globulin Ratio 1.0 L 03/01/19 17:35: B-Natriuretic Peptide 109 H 03/01/19 20:28: POC Glucose 275 H 03/02/19 05:34: POC Glucose 216 H 03/02/19 05:36: Sodium 135 L, BUN 30 H, Creatinine 1.85 H, Estimated GFR 36 L, Est GFR ( Amer) 43 L D, Glucose 229 H D, Calcium 8.2 L chest xray:IMPRESSION: Cardiomegaly, no acute chest pathology noted hip x ray: no acute findings head ct:IMPRESSION: Findings of moderate cerebral and and mild cerebellar atrophy, non recent ischemic infarct as described, no acute intra cranial pathology noted Today pt states he feels much better, will dc home have meds to beds to ensure pt has home meds,consult pt for eval. Results Labs on day of discharge: Labs from last 24 hours 03/02/19 03/02/19 03/01/19 05:36 05:34 23:05 WBC RBC Hgb Hct MCV MCH MCHC RDW Plt Count MPV Neut % (Auto) Lymph % (Auto) [place] % (Auto) Eos % (Auto) Baso % (Auto) Neut # (Auto) Lymph # (Auto) [place] # (Auto) Eos # (Auto) Baso # (Auto) Sodium 135 L Potassium 3.5 Chloride 102 Carbon Dioxide 26 Anion Gap 10.5 BUN 30 H Creatinine 1.85 H Estimated Creat Clear 44 Estimated GFR 36 L Est GFR ( Amer) 43 L D Glucose 229 H D POC Glucose 216 H Lactate Calcium 8.2 L Magnesium Total Bilirubin AST ALT Alkaline Phosphatase Total Creatine Kinase Troponin I < 0.02 B-Natriuretic Peptide Total Protein Albumin Globulin Albumin/Globulin Ratio TSH Urine Color Urine Appearance Urine pH Ur Specific [place] Urine Protein Urine Glucose (UA) Urine Ketones Urine Blood Urine Nitrate Urine Bilirubin Urine Urobilinogen Ur Leukocyte Esterase Urine RBC Ur Squamous Epith Cells Acetone Level 03/01/19 03/01/19 03/01/19 20:28 19:20 19:20 WBC RBC Hgb Hct MCV MCH MCHC RDW Plt Count MPV Neut % (Auto) Lymph % (Auto) [place] % (Auto) Eos % (Auto) Baso % (Auto) Neut # (Auto) Lymph # (Auto) [place] # (Auto) Eos # (Auto) Baso # (Auto) Sodium Potassium Chloride Carbon Dioxide Anion Gap BUN Creatinine Estimated Creat Clear Estimated GFR Est GFR ( Amer) Glucose POC Glucose 275 H Lactate 1.5 Calcium Magnesium Total Bilirubin AST ALT Alkaline Phosphatase Total Creatine Kinase Troponin I < 0.02 B-Natriuretic Peptide Total Protein Albumin Globulin Albumin/Globulin Ratio TSH Urine Color Urine Appearance Urine pH Ur Specific [place] Urine Protein Urine Glucose (UA) Urine Ketones Urine Blood Urine Nitrate Urine Bilirubin Urine Urobilinogen Ur Leukocyte Esterase Urine RBC Ur Squamous Epith Cells Acetone Level 03/01/19 03/01/19 03/01/19 18:53 17:35 17:35 WBC RBC Hgb Hct MCV MCH MCHC RDW Plt Count MPV Neut % (Auto) Lymph % (Auto) [place] % (Auto) Eos % (Auto) Baso % (Auto) Neut # (Auto) Lymph # (Auto) [place] # (Auto) Eos # (Auto) Baso # (Auto) Sodium Potassium Chloride Carbon Dioxide Anion Gap BUN Creatinine Estimated Creat Clear Estimated GFR Est GFR ( Amer) Glucose POC Glucose Lactate Calcium Magnesium Total Bilirubin AST ALT Alkaline Phosphatase Total Creatine Kinase 137 Troponin I B-Natriuretic Peptide 109 H Total Protein Albumin Globulin Albumin/Globulin Ratio TSH Urine Color Yellow Urine Appearance Clear Urine pH 5.5 Ur Specific [place] 1.015 Urine Protein 2+ Urine Glucose (UA) 3+ Urine Ketones Negative Urine Blood 1+ Urine Nitrate Negative Urine Bilirubin Negative Urine Urobilinogen 0.2 Ur Leukocyte Esterase Negative Urine RBC 3-5 Ur Squamous Epith Cells Occasional Acetone Level None detected 03/01/19 03/01/19 03/01/19 17:35 17:35 17:35 WBC 8.1 RBC 5.16 Hgb 15.2 Hct 46.6 MCV 90.3 MCH 29.5 MCHC 32.6 RDW 13.3 Plt Count 195 MPV 7.7 Neut % (Auto) 71.3 Lymph % (Auto) 21.7 [place] % (Auto) 4.3 Eos % (Auto) 2.2 Baso % (Auto) 0.4 Neut # (Auto) 5.8 Lymph # (Auto) 1.8 [place] # (Auto) 0.4 Eos # (Auto) 0.2 Baso # (Auto) 0.0 Sodium 128 L Potassium 4.1 Chloride 92 L Carbon Dioxide 25 Anion Gap 15.1 H BUN 32 H Creatinine 2.28 H Estimated Creat Clear 35 Estimated GFR 28 L Est GFR ( Amer) 34 L Glucose 609 H* POC Glucose Lactate Calcium 8.9 Magnesium 1.8 Total Bilirubin 0.5 AST 14 L ALT 18 Alkaline Phosphatase 121 H Total Creatine Kinase Troponin I < 0.02 B-Natriuretic Peptide Total Protein 6.9 Albumin 3.4 Globulin 3.5 H Albumin/Globulin Ratio 1.0 L TSH 2.89 Urine Color Urine Appearance Urine pH Ur Specific [place] Urine Protein Urine Glucose (UA) Urine Ketones Urine Blood Urine Nitrate Urine Bilirubin Urine Urobilinogen Ur Leukocyte Esterase Urine RBC Ur Squamous Epith Cells Acetone Level - Additional Comments Rounded with Dr. Villegas all orders per [facility] and have meds to bed bring med to bedside DS: Diagnosis - Discharge Diagnosis (1) Type 2 diabetes mellitus with hyperosmolar nonketotic hyperglycemia Status: Acute (2) CKD (chronic kidney disease) stage 3, GFR 30-59 ml/min Status: Acute (3) Congestive heart failure of unknown etiology Status: Acute (4) Diabetes mellitus type 2 in obese Status: Acute (5) Hyperlipidemia Status: Chronic (6) Hypertension Status: Chronic Discharge Plan - Patient Discharge Instructions ACTIVITY: Continue current activity DIET: continue same diet Patient Instructions: Chronic Renal Failure, DI for Hyponatremia, DI for Peripheral Edema -- Bilateral, Hyponatremia-Adult - Follow up Plan Follow up with: Kristopher Russo APRN [Advanced Practice Nurse] - 1 week Disposition: Home, Self-Jail Medications: Home Medications Medication Instructions Recorded Confirmed Type Insulin Glargine,Hum.rec.anlog 40 unit SQ HS 03/01/19 03/02/19 History [Toucalio Miroslavaostar] Aspirin [Aspir 81] 81 mg PO DAILY 30 Days #30 tab 03/02/19 Rx Atorvastatin Calcium [Lipitor 40mg 40 mg PO HS 30 Days #30 tab 03/02/19 Rx Tablet] Fenofibrate,Micronized 200 mg PO DAILY 30 Days #30 cap 03/02/19 Rx [Fenofibrate] Furosemide [Furosemide 80mg Tab] 80 mg PO DAILY 30 Days tab NS 03/02/19 Rx Insulin Glargine,Hum.rec.anlog 40 unit SQ DAILY 30 Days #1 vial 03/02/19 Rx [Lantus Insulin 100units/mL 10mL vial] carvediloL [Carvedilol 25mg Tab] 25 mg PO BID 30 Days #30 tab 03/02/19 Rx dilTIAZem HCl [Diltiazem 240mg 240 mg PO DAILY 30 Days #30 c24 03/02/19 Rx 24Hr ER Cap] Prescriptions/Medication Reconciliation: New Insulin Glargine,Hum.rec.anlog [Lantus Insulin 100units/mL 10mL vial] 40 unit SQ DAILY 30 Days #1 vial Continued carvediloL [Carvedilol 25mg Tab] 25 mg PO BID 30 Days #30 tab dilTIAZem HCl [Diltiazem 240mg 24Hr ER Cap] 240 mg PO DAILY 30 Days #30 c24 Furosemide [Furosemide 80mg Tab] 80 mg PO DAILY 30 Days tab NS Atorvastatin Calcium [Lipitor 40mg Tablet] 40 mg PO HS 30 Days #30 tab Aspirin [Aspir 81] 81 mg PO DAILY 30 Days #30 tab Fenofibrate,Micronized [Fenofibrate] 200 mg PO DAILY 30 Days #30 cap Discontinued Insulin Glargine,Hum.rec.anlog [Jonny Amaya] 40 unit SQ HS - Problem Reconciliation Problems Reviewed?: Yes
--- NOTE | 2019-03-02 12:53 | Electrocardiograph Report ---
APPROVED REPORT Exam: Resting ECG HR:120 bpm ECG Measurements Heart Rate 120 AXES MA 166 P 17 QRSd 142 QRS -10 QT 384 T124 QTc 542 <Conclusion> Sinus tachycardia Possible Left atrial enlargement LBBB Abnormal ECG Electronically signed by : Jadiel Hamilton, 03/02/2019 12:52:46
== END 2019-03-02 17:45 | disposition home or self-care (01) ==
LOC: 2ND 16:32 → ER 16:32 → 2ND 20:00
PROVIDERS: ADMIT Internal Medicine Adolescent Medicine; ATTEND Emergency Medicine
CPT/HCPCS: 36415; 70450; 71010; 71045; 73502; 80048; 80053; 81001; 82009; 82550; 82962; 83605; 83735; 83880; 84443; 84484; 85025; 93005; 96365; 96372; 96375; 97161; 99284; G0378

== ENCOUNTER → 2019-03-06 11:33 | Outpatient (CLI) | payer MEDICARE, SELFPAY ==
--- NOTE | 2019-03-06 11:37 | CA_ITS ---
APPROVED REPORT Left Lower Extremity Venous Study for DVT. Central Lab Technician: RONI Indications Lower Extremity Pain: Lower Extremity Edema: Left Lower Extremity Swelling: Left swelling Risk Factors Obesity Vein Imaging CFV (L): compressive, spontaneous, phasic, augmentation FEM (L): compressive, spontaneous, phasic, augmentation POP (L): compressive, spontaneous, phasic, augmentation PTV (L): Compressible GSV (L): compressive, spontaneous, phasic, augmentation SSV (L): Compressible Peroneals (L):Compressible GAS (L): Compressible Findings No evidence of DVT or superficial thrombophlebitis in the veins scanned of the left lower extremity. Conclusion No evidence of DVT or superficial thrombophlebitis in the veins scanned of the left lower extremity. Electronically signed by : Erich Rendon, 03/06/2019 16:37:15
[2019-03-06 15:21] LABS: Basophils # 0.1 K/mm3 (0-0.2); Basophils % 0.6 % (0.1-2.0); Eosinophils # 0.3 K/mm3 (0.0-0.4); Hematocrit 43.4 % (42.0-52.0); Hemoglobin 13.7 g/dL (14.1-18.0); Lymphocytes # 2.5 K/mm3 (0.7-4.5); Lymphocytes % 30.7 % (10-50); Mean Corpuscular HGB Conc 31.6 g/dL (31.8-35.4); Mean Corpuscular Hemoglobin 28.6 pg (27.0-31.2); Mean Corpuscular Volume 90.5 fl (80-94); Mean Platelet Volume 8.2 fl (7.4-10.4); Monocytes # 0.5 K/mm3 (0.1-1.0); Monocytes % 5.5 % (1.7-9.3); Neutrophils # 4.9 K/mm3 (1.8-7.8); Platelet Count 237 K/mm3 (142-424); Red Blood Count 4.79 M/mm3 (4.60-6.20); Red Cell Distribution Width 14.5 % (11.5-17.5); White Blood Count 8.2 K/mm3 (4.8-10.8)
[2019-03-06 19:17] LABS: Albumin Level 3.5 gm/dL (3.4-5.0); Blood Urea Nitrogen 28 mg/dL (7-18); Chloride 102 mmol/L (98-107); Potassium 4.2 mmoL/L (3.5-5.1); Sodium 138 mmol/L (136-145)
[2019-03-06 19:33] LABS: Alanine Aminotransferase 25 U/L (12-78); Albumin/Globulin Ratio 1.3 (1.1-1.8); Alkaline Phosphatase 76 U/L (46-116); Anion Gap 16.2 mEq/L (5-15); Aspartate Amino Transferase 26 U/L (15-37); Bilirubin,Total 0.5 mg/dL (0.2-1.0); Calcium 8.7 mg/dL (8.5-10.1); Carbon Dioxide 24 mmol/L (21.0-32.0); Creatinine,Serum 1.81 mg/dL (0.70-1.30); Estimated Glomerular Filt Rate 37 ml/min (>60); GFR (African American) 44 ML/MIN (>60); Globulin 2.8 gm/dl (1.3-3.2); Glucose 229 mg/dL (74-106); Total Protein,Serum 6.3 gm/dL (6.4-8.2)
== END ==
PROVIDERS: PCP Nurse Practitioner Family; Visit Provider Nurse Practitioner Family
DX: R60.0 Localized edema (principal); R60.9 Edema, unspecified; R53.1 Weakness; R26.81 Unsteadiness on feet
CPT/HCPCS: 80053; 85025; 93971

== ENCOUNTER → 2019-04-01 17:52 | Outpatient (CLI) | payer MEDICARE, SELFPAY ==
[2019-04-01 18:22] LABS: Basophils # 0.1 K/mm3 (0-0.2); Basophils % 0.8 % (0.1-2.0); Eosinophils # 0.4 K/mm3 (0.0-0.4); Eosinophils % 4.3 % (0.1-12.0); Hematocrit 40.1 % (42.0-52.0); Hemoglobin 12.7 g/dL (14.1-18.0); Lymphocytes # 2.5 K/mm3 (0.7-4.5); Lymphocytes % 25.7 % (10-50); Mean Corpuscular HGB Conc 31.6 g/dL (31.8-35.4); Mean Corpuscular Hemoglobin 29.6 pg (27.0-31.2); Mean Corpuscular Volume 93.8 fl (80-94); Mean Platelet Volume 8.2 fl (7.4-10.4); Monocytes # 0.5 K/mm3 (0.1-1.0); Monocytes % 5.1 % (1.7-9.3); Neutrophils # 6.2 K/mm3 (1.8-7.8); Neutrophils % 64.1 % (37.0-80.0); Platelet Count 292 K/mm3 (142-424); Red Blood Count 4.28 M/mm3 (4.60-6.20); Red Cell Distribution Width 13.3 % (11.5-17.5); White Blood Count 9.6 K/mm3 (4.8-10.8)
[2019-04-01 18:38] LABS: Chloride 99 mmol/L (98-107)
[2019-04-01 18:39] LABS: Potassium 5.3 mmoL/L (3.5-5.1); Sodium 140 mmol/L (136-145)
[2019-04-01 18:41] LABS: Alanine Aminotransferase 20 U/L (12-78); Anion Gap 16.3 mEq/L (5-15); Aspartate Amino Transferase 36 U/L (17-59); Blood Urea Nitrogen 42 mg/dl (9-20); Carbon Dioxide 30 mmol/L (22.0-30.0); Estimated Glomerular Filt Rate 23 ml/min (>60); GFR (African American) 28 ML/MIN (>60)
[2019-04-01 18:42] LABS: Albumin Level 3.8 g/dl (3.5-5.0); Albumin/Globulin Ratio 1.5 (1.1-1.8); Alkaline Phosphatase 53 U/L (38-126); Bilirubin,Total 0.3 mg/dl (0.2-1.3); Calcium 8.9 mg/dl (8.4-10.2); Cholesterol 107 mg/dl (140-200); Globulin 2.6 g/dL (1.3-3.2); Glucose 265 mg/dl (74-100); HDL Cholesterol 36 mg/dl (40-60); Total Protein,Serum 6.4 g/dl (6.3-8.2); Triglycerides 203 mg/dl (30-150); VLDL Cholesterol 41 mg/dL (0-40)
[2019-04-01 19:00] LABS: T4 (Thyroxine) 7.6 ug/dl (5.53-11.0)
[2019-04-01 19:13] LABS: Thyroid Stimulating Hormone 4.45 uIU/mL (0.465-4.68)
[2019-04-01 23:05] LABS: Hemoglobin A1C 11.9 % (4.0-6.0)
[2019-04-03 11:09] LABS: Creatinine, Urine 90.2 mg/dL (Not Estab.)
[2019-04-03 12:02] LABS: Vitamin D 25 Hydroxy 25.2 ng/mL (30.0-100.0)
[2019-04-03 12:03] LABS: Microalbumin, Urine 486.4 ug/mL (Not Estab.)
== END ==
PROVIDERS: Visit Provider Nurse Practitioner Family
DX: E11.69 Type 2 diabetes mellitus with other specified complication (principal); E66.9 Obesity, unspecified; R53.1 Weakness; E11.00 Type 2 diabetes mellitus with hyperosmolarity without nonketotic hyperglycemic-hyperosmolar coma (NKHHC); E55.9 Vitamin D deficiency, unspecified
CPT/HCPCS: 80053; 80061; 82043; 82570; 82652; 83036; 84436; 84443; 85025

== ENCOUNTER → 2019-04-16 12:58 | Outpatient (POV) | payer MEDICARE, SELFPAY | PROVIDERS: PCP Internal Medicine Nephrology; Visit Provider Internal Medicine Nephrology | DX: Z00.00 Encounter for general adult medical examination without abnormal findings (principal) ==

== ENCOUNTER → 2019-07-20 08:31 | Outpatient (CLI) | payer MEDICARE, SELFPAY ==
[2019-07-20 10:17] LABS: Coronavirus 19 IgG Antibody Negative (Negative); Coronavirus 19 IgM Antibody Negative (Negative)
== END ==
PROVIDERS: Visit Provider Ophthalmology
DX: Z01.818 Encounter for other preprocedural examination (principal)
CPT/HCPCS: 36415; 86328

== ENCOUNTER 2019-07-21 05:38 | Day surgery (SDC) | payer MEDICARE, SELFPAY ==
--- NOTE | 2019-07-17 08:58 | SUR.PREOP ---
07/17/2019 @ 0900--PHONE CALL MADE TO PATIENT. PATIENT UNDERSTANDS THAT LAB WORK AND COVID TESTING NEEDS TO BE COMPLETED @ 1000 ON 07/20/2019. PATIENT UNDERSTANDS IF LAB WORK AND COVID-19 TESTS ARE NOT COMPLETED BY 12PM ON THAT DATE, THE SURGERY SCHEDULED WILL BE CANCELLED AND RESCHEDULED FOR ANOTHER TIME.
[2019-07-21 06:33] VITALS: BP 144/63; PULSE 84; RESP 18; TEMP 37.4; O2SAT 98; BMI 39.6
[2019-07-21 06:51] LABS: POC Glucose,Bedside 337 (70-110)
[2019-07-21 07:41] VITALS: BP 132/61; PULSE 76; RESP 20; O2SAT 97
[2019-07-21 07:46] VITALS: BP 120/65; PULSE 74; RESP 18; O2SAT 99
[2019-07-21 07:51] VITALS: BP 121/68; PULSE 74; RESP 18; O2SAT 98
[2019-07-21 07:56] VITALS: BP 123/66; PULSE 73; RESP 18; O2SAT 99
[2019-07-21 08:00] VITALS: BP 138/72; PULSE 78; RESP 20; TEMP 36.6; O2SAT 96
== END 2019-07-21 08:10 | disposition home or self-care (01) ==
LOC: OR 05:39
PROVIDERS: PCP Emergency Medicine; Visit Provider Ophthalmology
DX: H25.811 Combined forms of age-related cataract, right eye (principal); H25.812 Combined forms of age-related cataract, left eye; H53.8 Other visual disturbances; E11.9 Type 2 diabetes mellitus without complications; Z83.3 Family history of diabetes mellitus; Z80.9 Family history of malignant neoplasm, unspecified; Z82.49 Family history of ischemic heart disease and other diseases of the circulatory system; Z79.82 Long term (current) use of aspirin; Z79.899 Other long term (current) drug therapy
CPT/HCPCS: 66984; 82962; V2632

== ENCOUNTER → 2019-08-24 09:07 | Outpatient (CLI) | payer MEDICARE, SELFPAY ==
[2019-08-24 11:14] LABS: Coronavirus 19 IgG Antibody Negative (Negative); Coronavirus 19 IgM Antibody Negative (Negative)
== END ==
PROVIDERS: Visit Provider Ophthalmology
DX: Z01.818 Encounter for other preprocedural examination (principal)
CPT/HCPCS: 36415; 86328

== ENCOUNTER 2019-08-25 06:20 | Day surgery (SDC) | payer MEDICARE, SELFPAY ==
[2019-08-20 16:24] VITALS: BMI 39.6
[2019-08-25 06:43] VITALS: BP 135/58; PULSE 88; RESP 18; TEMP 36.2; O2SAT 98; BMI 39.6
[2019-08-25 06:57] LABS: POC Glucose,Bedside 169 (70-110)
--- NOTE | 2019-08-25 07:02 | SUR.PREOP ---
Procedure cancelled per Dr Kwong due to presence of bedbug.
--- NOTE | 2019-08-25 07:19 | SUR.PREOP ---
0700: IV d/c'd, site clean. Pt instructed not to drive or operate machinery today r/t eye dilation.
== END 2019-08-25 08:00 | disposition home or self-care (01) ==
LOC: OR 06:22
PROVIDERS: PCP Emergency Medicine; Visit Provider Ophthalmology
DX: Z53.8 Procedure and treatment not carried out for other reasons (principal); H26.9 Unspecified cataract; E10.9 Type 1 diabetes mellitus without complications; E11.9 Type 2 diabetes mellitus without complications
CPT/HCPCS: 82962

== ENCOUNTER → 2020-06-16 14:54 | Outpatient (POV) | payer MEDICARE, SELFPAY | PROVIDERS: Visit Provider Internal Medicine Nephrology | DX: Z00.00 Encounter for general adult medical examination without abnormal findings (principal) ==

== ENCOUNTER → 2020-08-11 15:11 | Outpatient (POV) | payer MEDICARE, SELFPAY | PROVIDERS: Visit Provider Internal Medicine Nephrology | DX: Z00.00 Encounter for general adult medical examination without abnormal findings (principal) ==

== ENCOUNTER → 2020-12-15 15:43 | Outpatient (POV) | payer MEDICARE, SELFPAY | PROVIDERS: Visit Provider Internal Medicine Nephrology | DX: Z00.00 Encounter for general adult medical examination without abnormal findings (principal) ==

== ENCOUNTER → 2021-03-13 11:14 | Outpatient (CLI) | payer MEDICARE, SELFPAY ==
[2021-03-13 11:24] LABS: Microscopic, Urine URINE MICROSCOPIC (MICROSCOPIC)
[2021-03-13 11:52] LABS: Hematocrit 39.2 % (42.0-52.0); Hemoglobin 12.7 g/dL (14.1-18.0); Mean Corpuscular HGB Conc 32.4 g/dL (31.8-35.4); Mean Corpuscular Hemoglobin 29.9 pg (27.0-31.2); Mean Corpuscular Volume 92.4 fl (80-94); Platelet Count 316 K/mm3 (142-424); Red Blood Count 4.24 M/mm3 (4.60-6.20); Red Cell Distribution Width 13.9 % (11.5-17.5); White Blood Count 9.8 K/mm3 (4.8-10.8)
[2021-03-13 12:11] LABS: Appearance,Urine CLEAR (Clear); Bilirubin,Urine Negative (Negative); Blood, Urine TRACE-I (Negative); Color,Urine YELLOW (Yellow); Glucose,Urine (UA) 3+ (Negative); Ketones,Urine Negative (Negative); Leukocyte Esterase,Urine Negative (Negative); Nitrate,Urine Negative (Negative); Protein,Urine 3+ (Negative); Urobilinogen,Urine 0.2 EU/dl (0.2)
[2021-03-13 12:28] LABS: Squamous Epithelial Cell,Urine Occasional #/hpf (0-5); WBC,Urine Occasional #/hpf (0-3)
[2021-03-13 12:29] LABS: Creatinine,Urine Random 57 mg/dL (Not Estab.)
[2021-03-13 12:39] LABS: Chloride 91 mmol/L (98-107); Potassium 4.1 mmoL/L (3.5-5.1); Sodium 132 mmol/L (136-145)
[2021-03-13 12:42] LABS: Anion Gap 12.1 mEq/L (5-15); Blood Urea Nitrogen 40 mg/dl (9-20); Carbon Dioxide 33 mmol/L (22.0-30.0); Estimated Glomerular Filt Rate 24 ml/min (>60); GFR (African American) 29 ML/MIN (>60)
[2021-03-13 12:43] LABS: Calcium 8.7 mg/dl (8.4-10.2); Glucose 291 mg/dl (74-100); Phosphorous 4.7 mg/dl (2.5-4.5)
== END ==
PROVIDERS: PCP Emergency Medicine; Visit Provider Internal Medicine Nephrology
DX: N18.32 Chronic kidney disease, stage 3b (principal)
CPT/HCPCS: 36415; 80069; 81001; 82570; 84155; 85014; 85018; 85048; 85049

== ENCOUNTER → 2021-04-13 13:45 | Outpatient (POV) | payer MEDICARE, SELFPAY | PROVIDERS: Visit Provider Internal Medicine Nephrology | DX: Z00.00 Encounter for general adult medical examination without abnormal findings (principal) ==

== ENCOUNTER → 2021-04-13 14:48 | Outpatient (CLI) | payer MEDICARE, SELFPAY ==
[2021-04-15 10:58] LABS: Complement C3 140 mg/dL (82-167)
[2021-04-15 11:18] LABS: Hep A Ab, IgM Negative (Negative); Hepatitis B Core Antibody IgM Negative (Negative); Hepatitis B Surface Antigen Negative (Negative); Hepatitis C Antibody <0.1 s/co ratio (0.0-0.9)
[2021-04-17 14:11] LABS: Immunoglobulin A, Qn 328 mg/dL (61-437); Immunoglobulin G, Qn 760 mg/dL (603-1613); Immunoglobulin M, Qn 272 mg/dL (15-143)
[2021-04-17 15:11] LABS: Albumin 3.1 g/dL (2.9-4.4); Alpha-1-Globulin 0.2 g/dL (0.0-0.4); Alpha-2-Globulin 1.2 g/dL (0.4-1.0); Protein, Total 6.7 g/dL (6.0-8.5)
[2021-05-17 20:57] LABS: Antinuclear Antibodies (ANA) NEGATIVE
[2021-05-17 20:58] LABS: Free Kappa Lt Chains 62.6; Free Lambda Lt Chains 43.8
== END ==
PROVIDERS: Visit Provider Internal Medicine Nephrology
DX: R80.1 Persistent proteinuria, unspecified (principal); R53.1 Weakness
CPT/HCPCS: 36415; 80074; 82784; 83883; 84155; 84165; 86038; 86161; 86334

== ENCOUNTER → 2021-05-15 08:54 | Outpatient (CLI) | payer MEDICARE, SELFPAY ==
[2021-05-15 09:02] LABS: Microscopic, Urine URINE MICROSCOPIC (MICROSCOPIC)
[2021-05-15 09:20] LABS: Appearance,Urine CLEAR (Clear); Bilirubin,Urine Negative (Negative); Blood, Urine 1+ (Negative); Color,Urine YELLOW (Yellow); Glucose,Urine (UA) 1+ (Negative); Ketones,Urine Negative (Negative); Leukocyte Esterase,Urine Negative (Negative); Nitrate,Urine Negative (Negative); PH,Urine 6.5 (5.0-8.5); Protein,Urine 3+ (Negative); Specific Gravity, Urine 1.025 (1.005-1.030); Urobilinogen,Urine 0.2 EU/dl (0.2)
[2021-05-15 09:22] LABS: Hematocrit 36.1 % (42.0-52.0); Hemoglobin 12.3 g/dL (14.1-18.0); Mean Corpuscular HGB Conc 34.1 g/dL (31.8-35.4); Mean Corpuscular Hemoglobin 30.6 pg (27.0-31.2); Mean Corpuscular Volume 89.7 fl (80-94); Platelet Count 343 K/mm3 (142-424); Red Blood Count 4.02 M/mm3 (4.60-6.20); Red Cell Distribution Width 13.9 % (11.5-17.5)
[2021-05-15 09:45] LABS: Creatinine,Urine Random 88 mg/dL (Not Estab.)
[2021-05-15 09:47] LABS: Squamous Epithelial Cell,Urine Occasional #/hpf (0-5)
[2021-05-15 10:36] LABS: Albumin Level 4.2 g/dl (3.5-5.0); Blood Urea Nitrogen 51 mg/dl (9-20); Calcium 8.4 mg/dl (8.4-10.2); Carbon Dioxide 33 mmol/L (22.0-30.0); Chloride 90 mmol/L (98-107); Estimated Glomerular Filt Rate 18 ml/min (>60); GFR (African American) 21 ML/MIN (>60); Glucose 148 mg/dl (74-100); Phosphorous 6.2 mg/dl (2.5-4.5); Sodium 135 mmol/L (136-145)
[2021-05-15 10:39] LABS: Anion Gap 15.2 mEq/L (5-15); Potassium 3.2 mmoL/L (3.5-5.1)
== END ==
PROVIDERS: Visit Provider Internal Medicine Nephrology
DX: N18.4 Chronic kidney disease, stage 4 (severe) (principal)
CPT/HCPCS: 36415; 80069; 81001; 82570; 84155; 85014; 85018; 85048; 85049

== ENCOUNTER → 2021-05-18 13:30 | Outpatient (POV) | payer MEDICARE, SELFPAY | PROVIDERS: Visit Provider Internal Medicine Nephrology | DX: Z00.00 Encounter for general adult medical examination without abnormal findings (principal) ==

== ENCOUNTER → 2021-06-09 12:59 | Outpatient (CLI) | payer MEDICARE, SELFPAY ==
[2021-06-09 13:05] LABS: Microscopic, Urine URINE MICROSCOPIC (MICROSCOPIC)
[2021-06-09 13:54] LABS: Albumin Level 3.9 g/dl (3.5-5.0); Anion Gap 12.3 mEq/L (5-15); Blood Urea Nitrogen 43 mg/dl (9-20); Calcium 8.4 mg/dl (8.4-10.2); Carbon Dioxide 37 mmol/L (22.0-30.0); Chloride 92 mmol/L (98-107); Estimated Glomerular Filt Rate 20 ml/min (>60); GFR (African American) 24 ML/MIN (>60); Glucose 258 mg/dl (74-100); Potassium 3.3 mmoL/L (3.5-5.1); Sodium 138 mmol/L (136-145)
[2021-06-09 14:01] LABS: Hematocrit 37.2 % (42.0-52.0); Hemoglobin 12.5 g/dL (14.1-18.0); Mean Corpuscular HGB Conc 33.6 g/dL (31.8-35.4); Mean Corpuscular Hemoglobin 30.2 pg (27.0-31.2); Platelet Count 387 K/mm3 (142-424); Red Blood Count 4.13 M/mm3 (4.60-6.20); Red Cell Distribution Width 14.2 % (11.5-17.5)
[2021-06-09 14:03] LABS: Intact Parathyroid Hormone 288.8 pg/mL (7.5-53.5)
[2021-06-09 14:09] LABS: 25-OH Vitamin D, Total 15.1 ng/mL (30-100)
[2021-06-09 17:12] LABS: Creatinine,Urine Random 65 mg/dL (Not Estab.)
[2021-06-09 17:19] LABS: Appearance,Urine CLEAR (Clear); Bilirubin,Urine Negative (Negative); Blood, Urine TRACE-I (Negative); Color,Urine YELLOW (Yellow); Glucose,Urine (UA) 2+ (Negative); Ketones,Urine Negative (Negative); Leukocyte Esterase,Urine Negative (Negative); Nitrate,Urine Negative (Negative); Protein,Urine 2+ (Negative); Specific Gravity, Urine 1.025 (1.005-1.030); Urobilinogen,Urine 0.2 EU/dl (0.2)
[2021-06-09 17:48] LABS: Bacteria,Urine 1+ /lpf; RBC,Urine Occasional #/hpf (0-3); Squamous Epithelial Cell,Urine Occasional #/hpf (0-5); WBC,Urine Occasional #/hpf (0-3)
== END ==
PROVIDERS: Visit Provider Internal Medicine Nephrology
DX: N18.4 Chronic kidney disease, stage 4 (severe) (principal)
CPT/HCPCS: 36415; 80069; 81001; 82306; 82570; 83970; 84155; 85014; 85018; 85048; 85049

== ENCOUNTER → 2021-06-15 16:01 | Outpatient (POV) | payer MEDICARE, SELFPAY | PROVIDERS: Visit Provider Internal Medicine Nephrology | DX: Z00.00 Encounter for general adult medical examination without abnormal findings (principal) ==

== ENCOUNTER → 2021-10-04 13:35 | Outpatient (CLI) | payer MEDICARE, SELFPAY ==
[2021-10-04 13:42] LABS: Microscopic, Urine URINE MICROSCOPIC (MICROSCOPIC)
[2021-10-04 14:03] LABS: Appearance,Urine CLEAR (Clear); Bilirubin,Urine Negative (Negative); Blood, Urine TRACE-I (Negative); Color,Urine YELLOW (Yellow); Glucose,Urine (UA) 3+ (Negative); Ketones,Urine Negative (Negative); Leukocyte Esterase,Urine Negative (Negative); Nitrate,Urine Negative (Negative); Protein,Urine 3+ (Negative); Urobilinogen,Urine 0.2 EU/dl (0.2)
[2021-10-04 14:11] LABS: Hematocrit 38.7 % (42.0-52.0); Hemoglobin 12.3 g/dL (14.1-18.0); Mean Corpuscular HGB Conc 31.8 g/dL (31.8-35.4); Mean Corpuscular Hemoglobin 29.5 pg (27.0-31.2); Platelet Count 250 K/mm3 (142-424); Red Blood Count 4.16 M/mm3 (4.60-6.20); Red Cell Distribution Width 14.2 % (11.5-17.5)
[2021-10-04 14:14] LABS: Bacteria,Urine Trace /lpf; Squamous Epithelial Cell,Urine Occasional #/hpf (0-5); WBC,Urine Occasional #/hpf (0-3)
[2021-10-04 14:23] LABS: Albumin Level 3.7 g/dl (3.5-5.0); Anion Gap 12.1 mEq/L (5-15); Blood Urea Nitrogen 27 mg/dl (9-20); Calcium 8.8 mg/dl (8.4-10.2); Carbon Dioxide 30 mmol/L (22.0-30.0); Chloride 100 mmol/L (98-107); Estimated Glomerular Filt Rate 24 ml/min (>60); GFR (African American) 29 ML/MIN (>60); Glucose 194 mg/dl (74-100); Phosphorous 3.4 mg/dl (2.5-4.5); Potassium 4.1 mmoL/L (3.5-5.1); Sodium 138 mmol/L (136-145)
[2021-10-04 14:51] LABS: Creatinine,Urine Random 58 mg/dL (Not Estab.)
== END ==
PROVIDERS: PCP Emergency Medicine; Visit Provider Internal Medicine Nephrology
DX: N18.4 Chronic kidney disease, stage 4 (severe) (principal)
CPT/HCPCS: 36415; 80069; 81001; 82570; 84155; 85014; 85018; 85048; 85049

== ENCOUNTER → 2021-10-09 10:42 | Outpatient (POV) | payer MEDICARE, SELFPAY | PROVIDERS: Visit Provider Internal Medicine Nephrology | DX: Z00.00 Encounter for general adult medical examination without abnormal findings (principal) ==

== ENCOUNTER → 2021-12-05 10:31 | Outpatient (CLI) | payer MEDICARE, SELFPAY ==
[2021-12-05 19:06] LABS: Basophils # 0.1 K/mm3 (0-0.2); Basophils % 0.9 % (0.1-2.0); Eosinophils # 0.4 K/mm3 (0.0-0.4); Eosinophils % 4.4 % (0.1-12.0); Hematocrit 41.3 % (42.0-52.0); Hemoglobin 13.3 g/dL (14.1-18.0); Lymphocytes # 3.2 K/mm3 (0.7-4.5); Lymphocytes % 36.7 % (10-50); Mean Corpuscular HGB Conc 32.3 g/dL (31.8-35.4); Mean Corpuscular Hemoglobin 29.5 pg (27.0-31.2); Mean Corpuscular Volume 91.3 fl (80-94); Mean Platelet Volume 8.4 fl (7.4-10.4); Monocytes # 0.4 K/mm3 (0.1-1.0); Monocytes % 4.9 % (1.7-9.3); Neutrophils # 4.7 K/mm3 (1.8-7.8); Neutrophils % 53.1 % (37.0-80.0); Platelet Count 311 K/mm3 (142-424); Red Blood Count 4.53 M/mm3 (4.60-6.20); White Blood Count 8.8 K/mm3 (4.8-10.8)
[2021-12-05 19:14] LABS: Alanine Aminotransferase 22 U/L (12-78); Albumin Level 3.2 g/dl (3.5-5.0); Albumin/Globulin Ratio 1.1 (1.1-1.8); Alkaline Phosphatase 65 U/L (38-126); Anion Gap 15.3 mEq/L (5-15); Aspartate Amino Transferase 42 U/L (17-59); Bilirubin,Total 0.3 mg/dl (0.2-1.3); Blood Urea Nitrogen 27 mg/dl (9-20); Calcium 8.6 mg/dl (8.4-10.2); Carbon Dioxide 28 mmol/L (22.0-30.0); Chloride 103 mmol/L (98-107); Chol/HDL Ratio 5.3 (1-3.5); Cholesterol 158 mg/dl (140-200); Estimated Glomerular Filt Rate 27 ml/min (>60); GFR (African American) 33 ML/MIN (>60); Globulin 2.8 g/dL (1.3-3.2); Glucose 58 mg/dl (74-100); HDL Cholesterol 30 mg/dl (40-60); Potassium 4.3 mmoL/L (3.5-5.1); Sodium 142 mmol/L (136-145); Triglycerides 228 mg/dl (30-150); VLDL Cholesterol 46 mg/dL (0-40)
[2021-12-05 19:31] LABS: 25-OH Vitamin D, Total 40.7 ng/mL (30-100); Direct LDL Cholesterol 99.43 mg/dL (100-129)
[2021-12-05 19:33] LABS: Free T4 (Free Thyroxine) 1.21 ng/dl (0.78-2.19)
[2021-12-05 19:37] LABS: Hemoglobin A1C 7.4 % (4.0-6.0)
[2021-12-05 19:46] LABS: Prostate Specific Ag Screen 1.1 ng/ml (0.0-4.0); Thyroid Stimulating Hormone 4.39 uIU/mL (0.465-4.68)
== END ==
PROVIDERS: PCP Emergency Medicine; Visit Provider Emergency Medicine
DX: E11.69 Type 2 diabetes mellitus with other specified complication (principal); E66.9 Obesity, unspecified; Z12.5 Encounter for screening for malignant neoplasm of prostate; E55.9 Vitamin D deficiency, unspecified; Z79.4 Long term (current) use of insulin; Z68.39 Body mass index [BMI] 39.0-39.9, adult
CPT/HCPCS: 80053; 80061; 82306; 83036; 84439; 84443; 85025; G0103

== ENCOUNTER 2021-12-27 17:37 | Inpatient (IN) | payer MEDICARE, SELFPAY ==
[2021-12-27] VITALS (10 sets, daily range): BP systolic 121–184; BP diastolic 70–94; PULSE 36–90; RESP 6–24; TEMP 33.3–37.4; O2SAT 37–100; BMI 46.0
--- NOTE | 2021-12-27 17:44 | ECG_ITS ---
APPROVED REPORT Exam: Resting ECG HR:91 bpm ECG Measurements Heart Rate 91 AXES NE 241 P 26 QRSd 163 QRS 16 QT 404 T 192 QTc 453 Conclusion SINUS RHYTHM WITH FIRST DEGREE AV BLOCK LEFT BUNDLE BRANCH BLOCK [120+ ms QRS DURATION, 80+ ms Q/S IN V1/V2, 85+ ms R IN I/aVL/V5/V6] ABNORMAL ECG INTERPRETATION BASED ON A DEFAULT AGE OF 41 YEARS UNCONFIRMED REPORT Electronically signed by : Antonio Foster MD 12/28/2021 21:17:03
--- NOTE | 2021-12-27 17:57 | XR_ITS ---
PROCEDURE INFORMATION: Exam: XR Chest Exam date and time: 12/27/2021 6:01 PM Age: 81 years old Clinical indication: Device placement; Ett placement (vent status); Additional info: Confirm et tube placement TECHNIQUE: Imaging protocol: Radiologic exam of the chest. Views: 1 view. COMPARISON: CR XR CHEST PORTABLE 03/01/2019 6:09 PM FINDINGS: Tubes, catheters and devices: There is an ET tube with tip situated 4 cm above the yolanda in adequate position. Lungs: There is diffuse pulmonary vascular congestion more pronounced within the right lung likely representing atypical CHF pattern. Pleural spaces: Unremarkable. No pleural effusion. No pneumothorax. Heart/Mediastinum: Heart is mildly enlarged. Bones/joints: Unremarkable for age. IMPRESSION: ET tube in satisfactory position.
[2021-12-27 18:06] LABS: Microscopic, Urine URINE MICROSCOPIC (MICROSCOPIC)
[2021-12-27 18:08] LABS: Appearance,Urine CLEAR (Clear); Bilirubin,Urine Negative (Negative); Blood, Urine 1+ (Negative); Color,Urine YELLOW (Yellow); Glucose,Urine (UA) 3+ (Negative); Ketones,Urine Negative (Negative); Leukocyte Esterase,Urine Negative (Negative); Nitrate,Urine Negative (Negative); Protein,Urine 3+ (Negative); Specific Gravity, Urine 1.025 (1.005-1.030); Urobilinogen,Urine 0.2 EU/dl (0.2)
[2021-12-27 18:15] LABS: Basophils # 0.3 K/mm3 (0-0.2); Basophils % 1.4 % (0.1-2.0); Eosinophils # 0.5 K/mm3 (0.0-0.4); Eosinophils % 2.3 % (0.1-12.0); Hematocrit 48.3 % (42.0-52.0); Hemoglobin 14.8 g/dL (14.1-18.0); Lymphocytes # 10.6 K/mm3 (0.7-4.5); Lymphocytes % 47.2 % (10-50); Mean Corpuscular HGB Conc 30.7 g/dL (31.8-35.4); Mean Corpuscular Hemoglobin 29.3 pg (27.0-31.2); Mean Corpuscular Volume 95.6 fl (80-94); Mean Platelet Volume 8.4 fl (7.4-10.4); Monocytes # 0.9 K/mm3 (0.1-1.0); Neutrophils # 10.1 K/mm3 (1.8-7.8); Neutrophils % 45.1 % (37.0-80.0); Platelet Count 420 K/mm3 (142-424); Red Blood Count 5.05 M/mm3 (4.60-6.20); Red Cell Distribution Width 14.6 % (11.5-17.5); White Blood Count 22.4 K/mm3 (4.8-10.8)
[2021-12-27 18:16] LABS: Chloride 95 mmol/L (98-107); MANUAL DIFFERENTIAL MANUAL DIFFERENTIAL (MANUAL DIFF); Potassium 4.1 mmoL/L (3.5-5.1); Sodium 139 mmol/L (136-145)
[2021-12-27 18:18] LABS: Alanine Aminotransferase 26 U/L (12-78); Aspartate Amino Transferase 42 U/L (17-59); Blood Urea Nitrogen 31 mg/dl (9-20); Estimated Glomerular Filt Rate 23 ml/min (>60); GFR (African American) 28 ML/MIN (>60)
[2021-12-27 18:19] LABS: Albumin/Globulin Ratio 1.2 (1.1-1.8); Alkaline Phosphatase 86 U/L (38-126); Anion Gap 18.1 mEq/L (5-15); Bilirubin,Total 0.4 mg/dl (0.2-1.3); Calcium 8.6 mg/dl (8.4-10.2); Carbon Dioxide 30 mmol/L (22.0-30.0); Globulin 3.3 g/dL (1.3-3.2); Glucose 277 mg/dl (74-100); Lactic Acid 1.8 mmol/L (0.7-2.1); Total Protein,Serum 7.3 g/dl (6.3-8.2)
[2021-12-27 18:27] LABS: Bacteria,Urine Trace /lpf; Squamous Epithelial Cell,Urine Occasional #/hpf (0-5)
--- NOTE | 2021-12-27 18:27 | HMH.EDGENADL ---
Discharge Plan Disposition Patient Disposition: Admitted As Inpatient Condition: Serious Prescriptions Prescriptions: No Action aspirin 325 mg tablet 325 mg PO DAILY furosemide 80 mg tablet 80 mg PO DAILY 30 Days Qty: 30 0RF (DME) lancets [Accu-Chek Fastclix Lancet Drum] [facility] See Rx Instructions .ROUTE .MEDSUPPLY Qty: 204 5RF Rx Instructions: As directed atorvastatin 40 mg tablet 40 mg PO HS Qty: 90 0RF Rx Instructions: TAKE ONE TABLET BY MOUTH EVERY DAY AT BEDTIME (DME) Accu-Chek Guide test strips Strip See Rx Instructions .ROUTE .COMPLEX Qty: 100 3RF Dose Instruction: USE 1 STRIP 4 TIMES DAILY DIRECTED FOR TESTING Rx Instructions: USE 1 STRIP 4 TIMES DAILY DIRECTED FOR TESTING carvedilol 25 mg tablet See Rx Instructions .ROUTE .COMPLEX Qty: 180 3RF Dose Instruction: TAKE 1 TABLET TWICE A DAY FOR HYPERTENSION Rx Instructions: TAKE 1 TABLET TWICE A DAY FOR HYPERTENSION diltiazem HCl [Cartia XT] 240 mg capsule,extended release 24hr See Rx Instructions .ROUTE .COMPLEX Qty: 90 3RF Dose Instruction: TAKE 1 CAPSULE DAILY FOR BLOOD PRESSURE Rx Instructions: TAKE 1 CAPSULE DAILY FOR BLOOD PRESSURE fenofibrate micronized 200 mg capsule See Rx Instructions .ROUTE .COMPLEX Qty: 90 3RF Dose Instruction: TAKE 1 CAPSULE DAILY Rx Instructions: TAKE 1 CAPSULE DAILY insulin glargine 100 UNIT/ML insulin pen 40 unit SQ DAILY (DME) pen needle, diabetic 1 EACH needle See Rx Instructions .Route .COMPLEX Rx Instructions: USE DIRECTED metolazone tab 1 EACH Each 2.5 mg PO DAILY Rx Instructions: zaroxolyn Referrals Follow up/Referrals: Provider,Referral, [Referring] - See instructions Clinical Impressions Clinical Impression: Acute cardiac pulmonary edema, Acute on chronic respiratory failure with hypoxia and hypercapnia Discharge ED Provider: Champ Prado General Adult HPI General Chief complaint: Shortness of Breath/Dyspnea Stated complaint: resp distress Time Seen by Provider: 12/27/21 17:37 History of Present Illness HPI narrative: Patient is brought in by ambulance. He is unable to give any history on arrival. EMS reports that the patient called 911 himself complaining of shortness of breath. When they arrived it appeared he had been unloading groceries from his trunk when he gets short of breath. He was sitting inside in a chair on nasal cannula oxygen when they arrived, a very long oxygen tubing with 2 L nasal cannula. He was very short of breath and could only speak to them in whispers. During transport he declined and became unresponsive with severe respiratory distress and he arrived in extremis. They noted when they arrived at his home that he was gurgling and they suspected congestive heart failure. Related Data Home Medications Medication Instructions Recorded Confirmed insulin glargine 100 unit/mL (3 40 unit SQ DAILY Diabetes 07/15/19 12/05/21 mL) subcutaneous pen pen needle, diabetic 31 gauge x 07/21/19 12/05/2104/26 aspirin 325 mg tablet 325 mg PO DAILY 12/05/21 12/05/21 metolazone tab 2.5 mg PO DAILY kidneys 12/05/21 Previous Rx's Medication Instructions Recorded furosemide 80 mg tablet 80 mg PO DAILY Fluid 30 days #30 03/19/19 tabs lancets (Accu-Chek Fastclix Lancet #204 ea 09/17/19 Drum) atorvastatin 40 mg tablet 40 mg PO HS Cholesterol #90 tabs 12/11/21 blood sugar diagnostic (Accu-Chek #100 ea 12/11/21 Guide test strips) carvedilol 25 mg tablet See Rx Instructions .Route 12/11/21 .COMPLEX #180 tabs diltiazem HCl 240 mg See Rx Instructions .Route 12/11/21 capsule,extended release 24 hr .COMPLEX #90 caps (Cartia XT) fenofibrate micronized 200 mg See Rx Instructions .Route 12/11/21 capsule .COMPLEX #90 caps Allergies Allergy/AdvReac Type Severity Reaction Status Date / Time clopidogrel [From Plavix] AdvRea
[2021-12-27 18:28] LABS: NT Pro Brain Natriuretic Pep. 2520 pg/mL (0-450)
[2021-12-27 18:32] LABS: Lymphocytes % 41 % (10-50); Monocytes % 2 % (2-9); Neutrophils % 57 % (42-76); Platelet Estimate Normal; RBC Morphology Normal; Total Cells Counted 100
[2021-12-27 18:33] LABS: Troponin I < 0.01 ng/ml (0.00-0.034)
--- NOTE | 2021-12-27 18:33 | PC.NURSE ---
PT BROUGHT IN VIA EMS ON NRB MASK AT 15/L. IV TO LEFT AC 20 GAUGE RN X 2 AT BEDSIDE, CRASH CART AT BEDSIDE. PT PLACED ON ZOLL MONITOR, PADS PLACED ON CHEST, PT BRADYCARDIC, PULSES PALPABLE. 1733 FSBS [address] DUONG, RN X 2, PARAMEDICS AND RESPIRATORY AT BEDSIDE ET TUBE 23 AT CORNER OF LIP, PLACEMENT VERIFIED WITH AUDIBLE BREATH SOUNDS BILATERALLY. COLOR CHANGE ON CO2 DETECTOR AND RISE IN HEART RATE 1742 IV PLACED IN RIGHT AC, LABS DRAWN, COVID/FLU SWAB COLLECTED. WARM IVF'S INFUSING 1745 PT PLACED IN STU HUGGER WELL WARM BLANKETS RECTAL TEMP 91.9 1750 CXR 1755 PT PLACED ON VENT PER RESPIRATORY 1758 HADLEY PLACED 1800 PT WARM, PINK AND DRY 1810 PT PULLED OUT ET TUBE, PLACED ON NRB MASK AT 15L RN X 2 AND ED MD AT BEDSIDE O2 SAT 87% 1815 LASIX GIVEN PER EMAR 1820 VERBAL MD ORDER FOR BIPAP, PLACED ON BIPAP PER RESPIRATORY, O2 SAT 89% AND HIGHER. PT ALERT. REASSURED AT THIS TIME, MD AT BEDSIDE. 1822 NITRO DRIP STARTED PER EMAR, 5MCG BP 191/95 HR 93 1824 NITRO DRIP TITRATED PER MD ORDER 10MCG BP 166/88 HR 94 1830 PT ALERT, TOLERATED BIPAP. SAT 97%, HR 83, RESP 20, B/P 154/78 1840 RN REMAINS AT BEDSIDE, PT TOLERATING BIPAP 184 ED MD AT BEDSIDE TO REASSESS PT, VERBAL ORDER TO REPEAT ABG AT 1791-2152. PT ALERT AND ANSWERS MD QUESTIONS. 184 PT RESTING WITH EYES CLOSED, STU HUGGER REMAINS IN PLACE. TOLERATING BIPAP 1850 HR 81, O2 SAT 97%, RESP 20 B/P 127/70 NITRO DRIP AT 10MCG. SKIN WARM PINK AND DRY. CAP REFILL LESS THAN 3 SECONDS. IV PATENT TO BILATERAL AC. 0 PT AWAKENS EASILY, REASSURED, TOLERATING BIPAP 1904 REPORT GIVEN TO Chago ALFREDO, RN 0 RESPIRATORY AT BEDSIDE FOR ABG
[2021-12-27 19:24] LABS: Coronavirus 19, PCR Not Detected (NotDetected); Influenza A, PCR Not Detected (NotDetected); Influenza B, PCR Not Detected (NotDetected)
[2021-12-27 19:41] LABS: Allen's Test Acceptable; Pressure Support 12; Source Right Radial; Vent Rate 14
[2021-12-27 19:44] LABS: Allen's Test Patient Unable; Oxygen 100 %; Source Left Radial
--- NOTE | 2021-12-27 20:57 | EXP.HP ---
History of Present Illness *Admission Date: 12/27/21 *Reason for visit:: Respiratory Failure *History of present illness: Mr. Augustine is a 81-year-old male with a past medical history of CKD stage 3, Grade 1 Diastolic CHF with EF 50%, Diabetes Mellitus, CAD. He presented to [facility] by EMS due to acute respiratory failure. Per ER records and discussion with ER attending the patient went to the grocery store and became very short of air. He called 911. On arrival to the patient's home EMS found that the patient was very hypoxic and placed the patient on supplemental oxygen. On arrival to our ER the patient was found to be very bradycardic with a HR in the 30's and he was extremely hypoxic with oxygen saturations in the 30's. He was intubated, given diuretics and had santo catheter placed and placed on a nitroglycerin gtt, he was also very hypertensive. He then self-extubed. He was seen in the ER on BIPAP ventilation following his self-extubation. He reports feeling better. He reports that he lives alone. He has significant bilateral lower extremity edema on exam and course crackles in his lungs, he is also noted to be bradycardic and has a significant leukocysotis. The patient will be admitted with initial impression: Acute Hypoxic and Hypercapnic Respiratory Failure and SIRS. He will be transitioned from the ER to a step-down unit. [facility] Medical History (Updated 12/28/21 @ 17:28 by Evan Corral MD) Atherosclerosis Chronic kidney disease CKD (chronic kidney disease) stage 3, GFR 30-59 ml/min Colon cancer Colon cancer high risk Congestive heart failure of unknown etiology Diabetes mellitus type 2 in obese LBBB (left bundle branch block) Obesity Peripheral edema Pulmonary vascular congestion Sleep apnea SOBOE (shortness of breath on exertion) Social History (Updated 12/28/21 @ 03:34 by Ana Gee RN) Smoking Status: Never smoker second hand exposure: No alcohol intake: never substance use type: denies use current occupational status: unemployed and retired Travel in the last 8 weeks: None household members: none housing: house current occupational exposures/hazards: No caffeine: Yes Review of Systems Review of Systems Review of systems:: pertinent systems reviewed and negative unless documented below Constitutional Constitutional: Reports lethargy Eyes Eyes: Reports system reviewed and no additional complaints, except as documented ENT Ears, Nose, Mouth, and Throat: Reports system reviewed and no additional complaints, except as documented *Cardiovascular Cardiovascular: Reports dyspnea on exertion, Reports edema, Reports leg edema, Reports orthopnea and Reports paroxysmal nocturnal dyspnea *Respiratory Respiratory: Reports dyspnea on exertion *Gastrointestinal Gastrointestinal: Reports system reviewed and no additional complaints, except as documented *Genitourinary Genitourinary: Reports system reviewed and no additional complaints, except as documented *Musculoskeletal Musculoskeletal: Reports system reviewed and no additional complaints, except as documented Integumentary/Breasts Skin/Breast: Reports system reviewed and no additional complaints, except as documented *Neurologic Neurologic: Reports system reviewed and no additional complaints, except as documented Psychiatric Psychiatric: Reports system reviewed and no additional complaints, except as documented Endocrine Endocrine: Reports system reviewed and no additional complaints, except as documented Hematologic/Lymphatic Hematologic/Lymphatic: Reports system reviewed and no additional complaints, except as documented Allergic/Immunologic Allergic/Immunologic: Reports system reviewed and no additional complaints, except as documented Meds Home Medications and Allergies Home Medications Medication Instructions Recorded Confirmed Type furosemide 80 mg tablet 80 mg PO DAILY Fluid 30 days #30 03/19/1912/12
--- NOTE | 2021-12-27 22:00 | PC.NURSE ---
transfer to 2nd floor delayed d/t room changes on the floor. They will call when available
[2021-12-27 22:22] LABS: Troponin I 0.03 ng/ml (0.00-0.034)
--- NOTE | 2021-12-27 23:45 | PC.NURSE ---
PT ARRIVED TO FLOOR VIA STRETCHER
[2021-12-28] VITALS (23 sets, daily range): BP systolic 110–168; BP diastolic 56–97; PULSE 77–100; RESP 14–22; TEMP 36.3–37.3; O2SAT 90–100; BMI 46.0
--- NOTE | 2021-12-28 00:26 | PC.NURSE ---
Nightwatch consulted for Vanc dosage.
[2021-12-28 01:04] LABS: Troponin I 0.04 ng/ml (0.00-0.034)
--- NOTE | 2021-12-28 04:11 | PC.NURSE ---
Pt A&O x4. Remains on Bipap @70%. Tolerating well at this time. Nitro gtt was stopped @ 0316. VSS at this time. F/C draining to bedside. 650 ml total output. No BM. Medications administered per mar. Verified and clarified with Jyoti [employer] and Nightwatch. Call light within reach.
[2021-12-28 05:21] LABS: POC Glucose,Bedside 142 (70-110)
[2021-12-28 06:22] LABS: Alanine Aminotransferase 19 U/L (12-78); Albumin Level 3.2 g/dl (3.5-5.0); Anion Gap 16.3 mEq/L (5-15); Aspartate Amino Transferase 30 U/L (17-59); Bilirubin,Total 0.4 mg/dl (0.2-1.3); Blood Urea Nitrogen 39 mg/dl (9-20); Calcium 8.2 mg/dl (8.4-10.2); Carbon Dioxide 27 mmol/L (22.0-30.0); Chloride 98 mmol/L (98-107); Creatinine Clearance Estimated 20 mL/min (50-200); Estimated Glomerular Filt Rate 19 ml/min (>60); GFR (African American) 24 ML/MIN (>60); Glucose 152 mg/dl (74-100); Potassium 3.3 mmoL/L (3.5-5.1); Sodium 138 mmol/L (136-145); Total Protein,Serum 5.9 g/dl (6.3-8.2)
[2021-12-28 06:23] LABS: Albumin/Globulin Ratio 1.2 (1.1-1.8); Alkaline Phosphatase 59 U/L (38-126); Globulin 2.7 g/dL (1.3-3.2)
[2021-12-28 06:41] LABS: Basophils # 0.1 K/mm3 (0-0.2); Basophils % 0.4 % (0.1-2.0); Eosinophils % 0.2 % (0.1-12.0); Hematocrit 38.9 % (42.0-52.0); Lymphocytes # 1.7 K/mm3 (0.7-4.5); Lymphocytes % 12.8 % (10-50); Mean Corpuscular HGB Conc 32.4 g/dL (31.8-35.4); Mean Corpuscular Hemoglobin 29.5 pg (27.0-31.2); Mean Corpuscular Volume 90.9 fl (80-94); Mean Platelet Volume 8.2 fl (7.4-10.4); Monocytes # 0.5 K/mm3 (0.1-1.0); Monocytes % 3.6 % (1.7-9.3); Platelet Count 267 K/mm3 (142-424); Red Blood Count 4.28 M/mm3 (4.60-6.20); Red Cell Distribution Width 14.9 % (11.5-17.5); White Blood Count 13.3 K/mm3 (4.8-10.8)
[2021-12-28 06:45] LABS: Hemoglobin 12.6 g/dL (14.1-18.0)
[2021-12-28 06:46] LABS: ABG PH 7.03 mmol/L (7.35-7.45)
[2021-12-28 06:47] LABS: ABG PCO2 86.5 mmhg (35.0-45.0); ABG PO2 260.1 mmhg (80-100)
[2021-12-28 06:48] LABS: ABG Base Excess -8.2 mmol/L (-2.4-2.3); ABG HCO3 22.5 mmhg (22.0-26.0); ABG TCO2 25.2 mmhg (23-27)
[2021-12-28 06:50] LABS: ABG Oxygen Saturation 98 % (90-100)
[2021-12-28 06:52] LABS: NT Pro Brain Natriuretic Pep. 3980 pg/mL (0-450)
[2021-12-28 06:53] LABS: ABG PH 7.32 mmol/L (7.35-7.45)
[2021-12-28 06:55] LABS: ABG Base Excess -1.8 mmol/L (-2.4-2.3); ABG HCO3 24.2 mmhg (22.0-26.0); ABG TCO2 25.7 mmhg (23-27)
[2021-12-28 06:56] LABS: ABG Oxygen Saturation 93 % (90-100)
[2021-12-28 06:57] LABS: Oxygen 100 %
[2021-12-28 06:58] LABS: Tidal Volume 20/8
--- NOTE | 2021-12-28 07:44 | HMH.PHAINT1 ---
Pharmacy Intervention Comments: Medication reconciliation completed via chart review, patient interview, and external fill history. -Geni Worthy, PharmD Candidate 2022
--- NOTE | 2021-12-28 08:31 | EXP.PHA.CONS ---
Pharmacy Consult Date: 12/28/21 Time: 08:31 Referring provider: DR. JONES Reason for Consult:: VANCOMYCIN DOSING Allergies Allergy/AdvReac Type Severity Reaction Status Date / Time clopidogrel [From Plavix] AdvReac Severe Chest Pain Verified 12/05/21 13:00 morphine AdvReac Intermediate Unknown Verified 12/05/21 13:00 allergy reaction promethazine AdvReac Intermediate Vomiting Verified 12/05/21 13:00 ranolazine [From Ranexa] AdvReac Intermediate Vomiting Verified 12/05/21 13:00 aspirin [From Kathleen Aspirin] AdvReac Mild Abdominal Verified 12/05/21 13:00 Pain Home Medications Medication Instructions Recorded Confirmed Type furosemide 80 mg tablet 80 mg PO DAILY Fluid 30 days #30 03/19/19 12/28/21 Rx tabs insulin glargine 100 unit/mL (3 40 unit SQ HS Diabetes 07/15/19 12/28/21 History mL) subcutaneous pen aspirin 325 mg tablet 325 mg PO DAILY Blood thinner 12/05/21 12/28/21 History atorvastatin 40 mg tablet 40 mg PO HS Cholesterol #90 tabs 12/11/21 12/28/21 Rx carvedilol 25 mg tablet 25 mg PO BID Hypertension 12/28/21 12/28/21 History diltiazem HCl 240 mg 240 mg PO DAILY rate control 12/28/21 12/28/21 History capsule,extended release 24 hr (Cartia XT) fenofibrate micronized 200 mg 200 mg PO DAILY hyperlipidemia 12/28/21 12/28/21 History capsule insulin lispro 100 unit/mL See Rx Instructions .Route 12/28/21 12/28/21 History subcutaneous solution (Humalog .COMPLEX Diabetes U-100 Insulin) metolazone 2.5 mg tablet 2.5 mg PO DAILY Edema 12/28/21 12/28/21 History New Prescriptions to Start Prescriptions: Height: 1.8 m Weight: 149.685 kg Laboratory Results:: Laboratory Results - last 24 hr 12/27/21 17:42: WBC 22.4 H*, RBC 5.05, Hgb 14.8, Hct 48.3, MCV 95.6 H, MCH 29.3, MCHC 30.7 L, RDW 14.6, Plt Count 420, MPV 8.4, Neut % (Auto) 45.1, Lymph % (Auto) 47.2, [place] % (Auto) 4.0, Eos % (Auto) 2.3, Baso % (Auto) 1.4, Neut # (Auto) 10.1 H, Lymph # (Auto) 10.6 H, [place] # (Auto) 0.9, Eos # (Auto) 0.5 H, Baso # (Auto) 0.3 H, Total Counted 100, Neutrophils % (Manual) 57, Lymphocytes % (Manual) 41, Monocytes % (Manual) 2, Platelet Estimate Normal, RBC Morphology Normal 12/27/21 17:42: Sodium 139, Potassium 4.1, Chloride 95 L, Carbon Dioxide 30, Anion Gap 18.1 H, BUN 31 H, Creatinine 2.70 H, Estimated GFR 23 L, Est GFR ( Amer) 28 L, Glucose 277 H, Calcium 8.6, Total Bilirubin 0.4, AST 42, ALT 26, Alkaline Phosphatase 86, Troponin I < 0.01, Total Protein 7.3, Albumin 4.0, Globulin 3.3 H, Albumin/Globulin Ratio 1.2 12/27/21 17:42: NT-Pro-B Natriuret Pep 2520 H 12/27/21 17:42: Lactate 1.8 12/27/21 17:50: Urine Color Yellow, Urine Appearance Clear, Urine pH 6.0, Ur Specific [place] 1.025, Urine Protein 3+, Urine Glucose (UA) 3+, Urine Ketones Negative, Urine Blood 1+, Urine Nitrate Negative, Urine Bilirubin Negative, Urine Urobilinogen 0.2, Ur Leukocyte Esterase Negative, Urine RBC 3-5, Urine WBC None, Ur Squamous Epith Cells Occasional, Urine Bacteria Trace 12/27/21 18:01: Specimen Source Left radial, O2 % 100, ABG pH 7.03 L*, ABG pCO2 86.5 H, ABG pO2 260.1 H, ABG HCO3 22.5, ABG Total CO2 25.2, ABG O2 Saturation 98, ABG Base Excess -8.2 L, Pipo Test Patient unable, Vent Rate Spice Miller, Tidal Volume Spice Miller, PEEP 12/27/21 18:50: SARS-CoV-2 (PCR) Not detected, Influenza A Untype (PCR) Not detected, Influenza Type B (PCR) Not detected 12/27/21 19:20: Specimen Source Right radial, O2 % 100, ABG pH 7.32 L, ABG pCO2 48.0 H, ABG pO2 73.0 L, ABG HCO3 24.2, ABG Total CO2 25.7, ABG O2 Saturation 93, ABG Base Excess -1.8, Pipo Test Acceptable, Vent Rate 14, Tidal Volume 20/8 12/27/21 21:23: Troponin I 0.03 12/28/21 00:30: Troponin I 0.04 H 12/28/21 05:13: POC Glucose 142 H 12/28/21 05:58: NT-Pro-B Natriuret Pep 3980 H 12/28/21 05:58: WBC 13.3 H D, RBC 4.28 L, Hgb 12.6 L D, Hct 38.9 L, MCV 90.9, MCH 29.5, MCHC 32.4, RDW 14.9, Plt Count 267 D, MPV 8.2, Neut % (Auto) 83.0 H, Lymph % (Auto) 12.8, [place] % (Auto) 3.6, Eos % (Auto) 0.2, Baso % (Aut
--- NOTE | 2021-12-28 11:07 | EXP.CARD.CON ---
History of Present Illness History of Present Illness Consult date: 12/28/21 Requesting physician: Evan Corral Consult reason: shortness of breath Chief complaint: soa History of present illness: This is an 81-year-old white gentleman who presented to the emergency department with complaints of shortness of breath. The patient reports that he was at the grocery store yesterday when he became very short of breath. He states that he put on his home O2 when he got home from the store and it was not helping. He states that his shortness of breath was severe and associated with a pressure in the substernal aspect of his chest. He reports no cough or fever. He states that his shortness of breath just continued to worsen despite his oxygen at home. He called EMS. Upon arrival EMS found the patient to be hypoxic and placed him on supplemental oxygen. When he got to the emergency department he was bradycardic with a heart rate around 30s and hypoxic with oxygen saturations in the 30s. The patient was intubated and given diuretics. He was also started on nitroglycerin drip because he was hypertensive. He then self extubated and was put on a BiPAP. This morning the patient is on nasal cannula at 4 L. He states that he felt much better when he was on the BiPAP. He states he is a little short of breath now that he is on a nasal cannula but he is nowhere near shortness of breath as he was yesterday. He states that when they took him off of BiPAP he had a little bit of pressure come back in his chest but this was much better when he was on BiPAP. He denies any fever, chills, nausea, vomiting or diarrhea. His shortness of breath is associated with orthopnea and bilateral lower extremity edema. The patient states that he has had the lower extremity edema for probably 40 years but it may be a little worse than normal. [facility] Medical History (Updated 12/28/21 @ 11:15 by Jennyfer Baires APRN) Atherosclerosis Chronic kidney disease CKD (chronic kidney disease) stage 3, GFR 30-59 ml/min Colon cancer Colon cancer high risk Congestive heart failure of unknown etiology Diabetes mellitus type 2 in obese LBBB (left bundle branch block) Obesity Peripheral edema Pulmonary vascular congestion Sleep apnea SOBOE (shortness of breath on exertion) Social History (Updated 12/28/21 @ 03:34 by Ana Gee RN) Smoking Status: Never smoker second hand exposure: No alcohol intake: never substance use type: denies use current occupational status: unemployed and retired Travel in the last 8 weeks: None household members: none housing: house current occupational exposures/hazards: No caffeine: Yes Review of Systems Review of Systems Review of systems:: pertinent systems reviewed and negative unless documented below Constitutional Constitutional: Reports system reviewed and no additional complaints, except as documented Eyes Eyes: Reports system reviewed and no additional complaints, except as documented ENT Ears, Nose, Mouth, and Throat: Reports system reviewed and no additional complaints, except as documented *Cardiovascular Cardiovascular: Reports system reviewed and no additional complaints, except as documented, Reports chest pain, Reports chest pain at rest, Reports dyspnea, Reports dyspnea on exertion, Reports edema, Reports leg edema and Reports orthopnea *Respiratory Respiratory: Reports system reviewed and no additional complaints, except as documented, Denies cough, Reports dyspnea and Reports dyspnea on exertion *Gastrointestinal Gastrointestinal: Reports system reviewed and no additional complaints, except as documented *Genitourinary Genitourinary: Reports system reviewed and no additional complaints, except as documented *Musculoskeletal Musculoskeletal: Reports system reviewed and no additional complaints, except as documented Integumentary/Breasts Skin/Breast: Reports system reviewed and no additional complaints, except as docum
[2021-12-28 12:29] LABS: POC Glucose,Bedside 198 (70-110)
[2021-12-28 16:55] LABS: POC Glucose,Bedside 290 (70-110)
--- NOTE | 2021-12-28 17:21 | EXP.ACUTE.PN ---
Subjective *Date: 12/28/21 *Time: 14:07 Interval history: Patient responded well to BiPAP. Able to transition to nasal cannula oxygen this morning. Has been off and on oxygen and BiPAP through the day pending if patient is sleeping or awake. Afebrile. Denies any significant chest pain. Labs this morning showing improvement in white cell count. Creatinine still quite elevated. Making urine. Electrolytes stable. Patient denies any nausea, vomiting, diarrhea, confusion. Medical Exam Vital signs and Labs for Last 24 Hours: Vital Signs Temp Pulse Pulse Resp BP BP BP 12/28/21 15:26 97.9 F 12/28/21 14:00 77 18 125/56 L 12/28/21 12:00 87 20 110/56 L 12/28/21 10:00 87 20 156/83 H 12/28/21 08:00 91 H 18 126/60 12/28/21 11:33 98.2 F 12/28/21 08:00 12/28/21 08:00 12/28/21 08:00 99.1 F 12/28/21 06:00 100 H 12/28/21 05:55 12/28/21 05:55 12/28/21 06:00 84 21 150/81 H 12/28/21 05:00 93 H 20 127/64 12/28/21 04:00 98.3 F 12/28/21 02:00 93 H 18 146/79 H 12/28/21 04:00 12/28/21 04:00 97.9 F 84 16 136/71 12/28/21 00:00 12/28/21 00:00 90 12/28/21 01:16 12/28/21 00:45 93 H 22 144/82 H 12/28/21 00:00 95 H 20 168/97 H 12/27/21 23:50 99.3 F 20 12/28/21 00:00 97.3 F L 12/27/21 23:35 92.5 F L 81 18 121/70 12/27/21 21:40 12/27/21 18:30 12/27/21 18:00 22 12/27/21 19:01 81 24 121/70 12/27/21 18:50 81 21 127/70 12/27/21 18:31 154/78 H 12/27/21 18:24 90 23 166/88 H 12/27/21 17:37 91.9 F L 36 L 6 L 184/94 H Pulse Ox FiO2 12/28/21 15:26 12/28/21 14:00 98 50 12/28/21 12:00 96 12/28/21 10:00 96 12/28/21 08:00 95 50 12/28/21 11:33 12/28/21 08:00 90 L 12/28/21 08:00 90 L 12/28/21 08:00 12/28/21 06:00 12/28/21 05:55 98 50 12/28/21 05:55 5 12/28/21 06:00 97 12/28/21 05:00 97 12/28/21 04:00 12/28/21 02:00 100 12/28/21 04:00 98 70 12/28/21 04:00 98 12/28/21 00:00 100 12/28/21 00:00 12/28/21 01:16 100 12/28/21 00:45 100 12/28/21 00:00 100 12/27/21 23:50 12/28/21 00:00 12/27/21 23:35 12/27/21 21:40 100 12/27/21 18:30 100 12/27/21 18:00 100 100 12/27/21 19:01 96 12/27/21 18:50 96 12/27/21 18:31 12/27/21 18:24 97 12/27/21 17:37 37 L Intake and Output 12/28/21 12/28/21 12/28/21 07:59 15:59 23:59 Intake Total 315 / 555 240 / 555 Output Total 650 / 2700 2050 / 2700 Balance -335 / -2145 -1810 / -2145 Intake: Intake, Oral Amount 240 / 240 Intake, Total IV Amount 315 / 315 Cefepime HCl 1 gm In 0.9 % 50 / 50 Sodium Chloride 50 ml @ 100 mls /hr IV Q12H [facility] Rx#:[id number] Nitroglycerin in 5 % Dextrose 15 / 15 250 ml @ 5 MCG/MIN 1.5 mls/hr IV .Q24H [facility] Rx#:[id number] Vancomycin HCl 2,000 mg In 0.9 250 / 250 % Sodium Chloride 250 ml @ 125 mls/hr IV ONCE ONE Rx#:[id number] Output: Output, Urine Amount 1400 / 1400 Output, Urine Amount (Catheter) 650 / 1300 650 / 1300 Mercado 650 / 1300 650 / 1300 Other: Number of Unmeasured Voids 0 0 Weight 149 kg Patient Weight 12/28/21 23:59 Weight 149 kg Laboratory Results - last 24 hr 12/27/21 17:42: WBC 22.4 H*, RBC 5.05, Hgb 14.8, Hct 48.3, MCV 95.6 H, MCH 29.3, MCHC 30.7 L, RDW 14.6, Plt Count 420, MPV 8.4, Neut % (Auto) 45.1, Lymph % (Auto) 47.2, [place] % (Auto) 4.0, Eos % (Auto) 2.3, Baso % (Auto) 1.4, Neut # (Auto) 10.1 H, Lymph # (Auto) 10.6 H, [place] # (Auto) 0.9, Eos # (Auto) 0.5 H, Baso # (Auto) 0.3 H, Total Counted 100, Neutrophils % (Manual) 57, Lymphocytes % (Manual) 41, Monocytes % (Manual) 2, Platelet Estimate Normal, RBC Morphology Normal 12/27/21 17:42: Sodium 139, Potassium 4.1, Chloride 95 L, Carbon Dioxide 30, Anion Gap 18.1 H,
--- NOTE | 2021-12-28 17:59 | PC.NURSE ---
Patient resting comfortably in bed, denies any pain, has been on 4LNC and bipap at 50% this shift, has tolerated both well, lung sounds diminished t/o, FC patent and draining clear yellow urine at bedside, good urine output this shift, alert and oriented x4, denies any cp or soa, call light in reach with bed in lowest position.
[2021-12-28 19:31] LABS: Chloride 94 mmol/L (98-107); Sodium 137 mmol/L (136-145)
[2021-12-28 19:32] LABS: Potassium 3.4 mmoL/L (3.5-5.1)
[2021-12-28 19:34] LABS: Blood Urea Nitrogen 39 mg/dl (9-20); Creatinine Clearance Estimated 21 mL/min (50-200); Estimated Glomerular Filt Rate 21 ml/min (>60); GFR (African American) 25 ML/MIN (>60)
[2021-12-28 19:35] LABS: Anion Gap 14.4 mEq/L (5-15); Calcium 8.3 mg/dl (8.4-10.2); Carbon Dioxide 32 mmol/L (22.0-30.0); Glucose 220 mg/dl (74-100)
--- NOTE | 2021-12-28 20:51 | CA_ITS ---
APPROVED REPORT EXAM: Comprehensive 2D, Doppler, and color-flow Echocardiogram Labor Standards Director: OBINNA Kaufman, RVS Ht: 5 ft 11 in Wt: 330lbs BSA: 2.61 BP: 000/00 mmHg Indications: Pe, Respiratory failure. CKD, CHF, Obesity Echo Enhancing Agent Comments: Technically limited windows, patient obesity, supine, bi pap 2D Dimensions IVSd 1.20 cm LVEF (Visual) 48.10 % PWd 1.22 cm LA Volume 32.10 mL LVDd 5.01 cm LA Volume Index 12.30 mL/m2 (M/F) 16-34 LVDs 3.79 cm Aortic Root 3.41 cm Left Atrium 3.62 cm LVOT 2.11 cm (M/F) 1.5-2.5 M-Mode Dimensions RVDd 3.14 cm (0.9-2.6) LA Diam 4.14 cm (1.9-4.0) LVDd 5.78 cm (3.5-5.7) Ao Diam 3.35 cm (2.0-3.7) LVDs 5.02 cm (3.5-5.7) IVSd 1.07 cm (0.6-1.1) PWd 1.19 cm (0.6-1.1) EF (Teich) 27.80% FS 13.10% EDV (Teich) 165.20 mL TAPSE 1.87 (<1.7) ESV (Teich) 119.30 mL LV Diastology E Decel Time 140.00 (160-240 msec) E/A Ratio 4.91 MED E' 11.40 (< 7 cm/sec) MED A' 6.30 cm/s E'/MED E' Ratio 12.83 (>14) LAT E' 9.40 (<10 cm/sec) LAT A' 3.60 cm/s E/LAT E' Ratio 15.56 (>14) Aortic Valve LVOT Max 95.00 (70-110 cm/s) LVOT VTI 17.47 cm AoV Peak Luisito. 244.00 (50-130 cm/s) AO Peak GR. 23.80 mmHg AO Mean GR. 12.20 (<5 mmHg) AO VTI 41.41 (18-25 cm) SERGE (VTI) 1.48 (2.5-4.5 cm2) Mitral Valve MV A Velocity 30.00 (40-130 cm/s) E/A Ratio 4.91 MV Decel. Time 140.00 (160-240 ms) MV Mean Gr. 4.10 (<2mmHg) MV PHT 43.00 ms Pulmonary Valve PV Peak Velocity 140.00 (50-150 cm/s) Tricuspid Valve TR P. Velocity 180.00 cm/s RAP Estimate 10.00 mmHg RVSP 22.90 mmHg Left Ventricle Technically difficult study because of the patient factors and poor acoustic windows. Left atrium is mildly enlarged, left ventricle is normal size mild concentric left ventricular hypertrophy, estimated ejection fraction is 50% with no regional wall motion abnormality in the obtained views, there is abnormal septal motion, diastolic parameters are inconclusive. Right Ventricle Right atrium and right ventricle are relatively normal size and contractility. Aortic Valve Aortic valve is thickened and calcified with restriction in the leaflet mobility, morphology of the aortic valve is not well visualized, the maximum aortic outflow velocity is 2.7 m/s resulting in a mean gradient of 24 mmHg, valve area is 1.2 cm??? represents moderate aortic stenosis, there is no aortic insufficiency seen. Mitral Valve Mitral valve has mitral annular calcification which extends in both anterior and posterior mitral leaflet, there is no mitral stenosis, there is mild mitral regurgitation. Tricuspid Valve Tricuspid valve grossly normal, there is trace tricuspid regurgitation, tricuspid regurgitation jet velocity is inadequate for calculation of the right ventricular systolic pressure. Pulmonic Valve Pulmonic valve is poorly visualized. Great Vessels Aortic root is normal size. Inferior vena cava is poorly visualized. Pericardium No significant pericardial effusion noted. Conclusion 1. Technically difficult study because of the patient factors and poor acoustic windows, normal left ventricular size, estimated ejection fraction 50%, there is abnormal septal motion. Diastolic parameters are inconclusive in the study. 2. Right ventricle is relatively normal size and contractility. 3. Thickened and calcified aortic valve w
[2021-12-28 21:05] LABS: POC Glucose,Bedside 277 (70-110)
[2021-12-29] VITALS (14 sets, daily range): BP systolic 108–144; BP diastolic 55–74; PULSE 60–90; RESP 14–25; TEMP 36.4–36.9; O2SAT 93–100; BMI 37.3
--- NOTE | 2021-12-29 04:01 | PC.NURSE ---
Pt A&O x4. Has not stated any complaints. Has rested well. Pt encouraged to turn. Pt has remained on Bipap 50% t/o night and has tolerated it well. Lungs noted to have coarse crackles to bases. He has diuresed well this shift. 2100 ml total urine output for this shift. No BM this shift. Pt is currently watching TV. Call light within reach.
[2021-12-29 05:31] LABS: POC Glucose,Bedside 193 (70-110)
[2021-12-29 06:17] LABS: Basophils # 0.1 K/mm3 (0-0.2); Basophils % 0.7 % (0.1-2.0); Eosinophils # 0.3 K/mm3 (0.0-0.4); Eosinophils % 3.1 % (0.1-12.0); Hematocrit 35.8 % (42.0-52.0); Hemoglobin 11.5 g/dL (14.1-18.0); Lymphocytes # 2.5 K/mm3 (0.7-4.5); Lymphocytes % 22.5 % (10-50); Mean Corpuscular HGB Conc 32.2 g/dL (31.8-35.4); Mean Platelet Volume 7.8 fl (7.4-10.4); Monocytes # 0.5 K/mm3 (0.1-1.0); Monocytes % 4.2 % (1.7-9.3); Neutrophils # 7.6 K/mm3 (1.8-7.8); Neutrophils % 69.5 % (37.0-80.0); Platelet Count 235 K/mm3 (142-424); Red Blood Count 3.98 M/mm3 (4.60-6.20); Red Cell Distribution Width 14.3 % (11.5-17.5)
[2021-12-29 06:22] LABS: Alanine Aminotransferase 17 U/L (12-78); Albumin Level 3.1 g/dl (3.5-5.0); Albumin/Globulin Ratio 1.1 (1.1-1.8); Alkaline Phosphatase 65 U/L (38-126); Anion Gap 15.1 mEq/L (5-15); Aspartate Amino Transferase 30 U/L (17-59); Bilirubin,Total 0.3 mg/dl (0.2-1.3); Blood Urea Nitrogen 48 mg/dl (9-20); Calcium 8.4 mg/dl (8.4-10.2); Carbon Dioxide 31 mmol/L (22.0-30.0); Chloride 94 mmol/L (98-107); Cholesterol 104 mg/dl (140-200); Creatinine Clearance Estimated 18 mL/min (50-200); Estimated Glomerular Filt Rate 18 ml/min (>60); GFR (African American) 21 ML/MIN (>60); Globulin 2.8 g/dL (1.3-3.2); Glucose 176 mg/dl (74-100); HDL Cholesterol 21 mg/dl (40-60); Potassium 3.1 mmoL/L (3.5-5.1); Sodium 137 mmol/L (136-145); Total Protein,Serum 5.9 g/dl (6.3-8.2); Triglycerides 187 mg/dl (30-150); VLDL Cholesterol 37 mg/dL (0-40)
[2021-12-29 06:39] LABS: Direct LDL Cholesterol 46.96 mg/dL (100-129)
[2021-12-29 07:40] LABS: 25-OH Vitamin D, Total 40.3 ng/mL (30-100)
--- NOTE | 2021-12-29 09:37 | EXP.CARD.PN ---
Subjective Subjective Date: 12/29/21 Time: 09:00 Principal diagnosis: CHF, CKD Interval history: This is an 81-year-old white gentleman who presented to the emergency department complaints of shortness of breath. He was also having some substernal chest pressure associated with the shortness of breath. The patient was hypoxic on arrival and as well as bradycardic. He was initially intubated and then self extubated. He was placed on BiPAP and is now on 4 L/min via nasal cannula. Today he still states he is short of breath. He states that he has had some improvement from yesterday with diuresis. He states that sometimes he is still having the pressure in his chest as well. He has bilateral lower extremity edema that he reports has been chronic for approximately 40 years. He denies any fever, chills, nausea, vomiting or diarrhea. His shortness of breath is associated with orthopnea. Exam Data for Last 24 hours Vital signs and Labs for Last 24 Hours: Temp Pulse Resp BP Pulse Ox FiO2 97.5 F L 80 16 135/63 97 50 12/29/21 08:00 12/29/21 06:00 12/29/21 06:00 12/29/21 06:00 12/29/21 06:00 12/29/21 06:16 Laboratory Results - last 24 hr 12/28/21 11:45: POC Glucose 198 H 12/28/21 16:32: POC Glucose 290 H 12/28/21 18:22: Sodium 137, Potassium 3.4 L, Chloride 94 L, Carbon Dioxide 32 H, Anion Gap 14.4, BUN 39 H, Creatinine 2.90 H, Estimated Creat Clear 21, Estimated GFR 21 L, Est GFR ( Amer) 25 L, Glucose 220 H D, Calcium 8.3 L 12/28/21 20:43: POC Glucose 277 H 12/29/21 05:21: POC Glucose 193 H 12/29/21 05:45: WBC 11.0 H, RBC 3.98 L, Hgb 11.5 L, Hct 35.8 L, MCV 90.0, MCH 29.0, MCHC 32.2, RDW 14.3, Plt Count 235, MPV 7.8, Neut % (Auto) 69.5, Lymph % (Auto) 22.5, [place] % (Auto) 4.2, Eos % (Auto) 3.1, Baso % (Auto) 0.7, Neut # (Auto) 7.6, Lymph # (Auto) 2.5, [place] # (Auto) 0.5, Eos # (Auto) 0.3, Baso # (Auto) 0.1 12/29/21 05:45: Triglycerides 187 H, Cholesterol 104 L, LDL Cholesterol Direct 46.96 L, VLDL Cholesterol 37, HDL Cholesterol 21 L, Cholesterol/HDL Ratio 5.0 H 12/29/21 05:45: Sodium 137, Potassium 3.1 L, Chloride 94 L, Carbon Dioxide 31 H, Anion Gap 15.1 H, BUN 48 H, Creatinine 3.40 H, Estimated Creat Clear 18, Estimated GFR 18 L*, Est GFR ( Amer) 21 L, Glucose 176 H, Calcium 8.4, Total Bilirubin 0.3, AST 30, ALT 17, Alkaline Phosphatase 65, Total Protein 5.9 L, Albumin 3.1 L, Globulin 2.8, Albumin/Globulin Ratio 1.1 12/29/21 05:45: 25-OH Vitamin D Total 40.3 I & O for Last 24 hours: Intake & Output 12/26/21 12/27/21 12/28/21 12/29/21 23:59 23:59 23:59 23:59 Intake Total 845 / 885 570 / 570 Output Total 3650 / 3650 1150 / 1150 Balance -2805 / -2765 -580 / -580 Weight 330 lb 328 lb 7.82 oz Microbiology Reports for the Last 24 Hours: Microbiology 12/28/21 04:00 Urine,Catheterized Urine Culture - Preliminary NO GROWTH AFTER 24 HOURS 12/27/21 18:01 Sputum - Endotracheal Tube Aspirate Gram Stain - Final 12/27/21 18:01 Sputum - Endotracheal Tube Aspirate Sputum Culture - Preliminary Constitutional Constitutional: no acute distress and morbidly obese *Routine HEENT Exam Head: Present normocephalic and atraumatic ENT: Present mucous membranes moist *Routine Neck Exam Neck: Present supple, full ROM and normal carotid upstroke; Absent JVD, carotid bruit or lymphadenopathy *Routine Respiratory Exam Respiratory: Present decreased breath sounds, wheezes, normal respiratory effort, able to speak in complete sentences and symmetric chest movement *Routine Cardiovascular Exam Cardiovascular: Present RRR, Normal S1 and Normal S2; Absent murmur or gallop *Routine Abdominal Exam Abdominal: Present soft and normoactive bowel sounds; Absent tenderness, distended or organomegaly *Routine Extremities Exam Extremities: Present full ROM, pulses intact and normal capillary refill; Absent cyanosis, clubbing or edema *Routine Skin Exam Skin: Present intact and warm; Absent erythema
[2021-12-29 09:45] LABS: Intact Parathyroid Hormone 125.8 pg/mL (7.5-53.5)
--- NOTE | 2021-12-29 12:07 | EXP.ACUTE.PN ---
Subjective *Date: 12/29/21 *Time: 16:52 Interval history: Patient did well overnight. Able to de-escalate to 4 L nasal cannula oxygen today. Wore BiPAP at night. States he did not sleep well however. Improvement in shortness of breath. Denies nausea, vomiting, chest pain. Diuresing well with significant urine output. Slight bump in creatinine this morning. Electrolytes remained stable. Tolerating fair p.o. intake. Medical Exam Vital signs and Labs for Last 24 Hours: Vital Signs Temp Pulse Pulse Resp BP Pulse Ox FiO2 12/29/21 10:00 79 22 121/58 L 95 12/29/21 08:00 88 22 127/74 94 L 12/29/21 07:50 73 93 L 12/29/21 08:00 100 12/29/21 08:00 97.5 F L 12/29/21 06:16 50 12/29/21 06:00 80 16 135/63 97 12/29/21 04:00 80 12/29/21 00:00 80 12/29/21 04:00 98.0 F 80 20 108/59 L 99 12/28/21 23:30 99 50 12/29/21 03:53 100 12/29/21 02:00 80 21 124/57 L 98 12/29/21 00:00 98.4 F 86 18 114/59 L 98 12/29/21 00:00 50 12/28/21 20:00 80 12/28/21 22:00 90 20 133/63 97 12/28/21 20:00 98.6 F 81 18 120/61 99 12/28/21 19:43 99 50 12/28/21 19:18 50 12/28/21 18:00 87 18 135/69 95 12/28/21 17:56 50 12/28/21 16:00 90 12/28/21 12:10 79 12/28/21 15:26 97.9 F 12/28/21 14:00 77 18 125/56 L 98 50 Intake and Output 12/28/21 12/29/21 12/29/21 23:59 07:59 15:59 Intake Total 290 / 885 90 / 570 480 / 570 Output Total 950 / 3650 1150 / 1150 Balance -660 / -2765 -1060 / -580 480 / -580 Intake: Intake, Oral Amount 240 / 520 40 / 520 480 / 520 Intake, Total IV Amount 50 / 365 50 / 50 Cefepime HCl 1 gm In 0.9 % 50 / 100 50 / 50 Sodium Chloride 50 ml @ 100 mls /hr IV Q12H [facility] Rx#:[id number] Output: Output, Urine Amount 0 / 1400 1150 / 1150 Output, Urine Amount (Catheter) 950 / 2250 [place] 950 / 2250 Other: Number of Unmeasured Voids 0 0 0 Weight 101.86 kg Patient Weight 12/29/21 23:59 Weight 101.86 kg Laboratory Results - last 24 hr 12/28/21 11:45: POC Glucose 198 H 12/28/21 16:32: POC Glucose 290 H 12/28/21 18:22: Sodium 137, Potassium 3.4 L, Chloride 94 L, Carbon Dioxide 32 H, Anion Gap 14.4, BUN 39 H, Creatinine 2.90 H, Estimated Creat Clear 21, Estimated GFR 21 L, Est GFR ( Amer) 25 L, Glucose 220 H D, Calcium 8.3 L 12/28/21 20:43: POC Glucose 277 H 12/29/21 05:21: POC Glucose 193 H 12/29/21 05:45: WBC 11.0 H, RBC 3.98 L, Hgb 11.5 L, Hct 35.8 L, MCV 90.0, MCH 29.0, MCHC 32.2, RDW 14.3, Plt Count 235, MPV 7.8, Neut % (Auto) 69.5, Lymph % (Auto) 22.5, [place] % (Auto) 4.2, Eos % (Auto) 3.1, Baso % (Auto) 0.7, Neut # (Auto) 7.6, Lymph # (Auto) 2.5, [place] # (Auto) 0.5, Eos # (Auto) 0.3, Baso # (Auto) 0.1 12/29/21 05:45: Triglycerides 187 H, Cholesterol 104 L, LDL Cholesterol Direct 46.96 L, VLDL Cholesterol 37, HDL Cholesterol 21 L, Cholesterol/HDL Ratio 5.0 H 12/29/21 05:45: Sodium 137, Potassium 3.1 L, Chloride 94 L, Carbon Dioxide 31 H, Anion Gap 15.1 H, BUN 48 H, Creatinine 3.40 H, Estimated Creat Clear 18, Estimated GFR 18 L*, Est GFR ( Amer) 21 L, Glucose 176 H, Calcium 8.4, Total Bilirubin 0.3, AST 30, ALT 17, Alkaline Phosphatase 65, Total Protein 5.9 L, Albumin 3.1 L, Globulin 2.8, Albumin/Globulin Ratio 1.1 12/29/21 05:45: PTH Intact 125.8 H 12/29/21 05:45: 25-OH Vitamin D Total 40.3 I & O for Labs for Last 24 Hours: Intake & Output 12/26/21 12/27/21 12/28/21 12/29/21 23:59 23:59 23:59 23:59 Intake Total 845 / 885 570 / 570 Output Total 3650 / 3650 1150 / 1150 Balance -2805 / -2765 -580 / -580 Weight 149.685 kg 149 kg 101.86 kg Microbiology Reports for the Last 24 Hours: Microbiology 12/28/21 04:00 Urine,Catheterized Urine Culture - Preliminary NO GROWTH AFTER 24 HOURS 12/27/21 18:01 Sputum - Endotracheal Tube Aspirate Gram
[2021-12-29 12:44] LABS: POC Glucose,Bedside 305 (70-110)
[2021-12-29 17:24] LABS: POC Glucose,Bedside 272 (70-110)
--- NOTE | 2021-12-29 17:30 | PC.NURSE ---
after breakfast pt requested to be placed back in bipap. He remained in bed on the bipap until lunch time, then he was able to shower this afternoon and has been up to the chair for most of the afternoon. nad noted, pt o2 sats have remained in the upper 90's. lung sounds contain crackles in travis bases. pt santo was dc after lunch, but has not been able to void as of this note time. bowel sounds are active in all quads
[2021-12-29 18:11] LABS: Chloride 90 mmol/L (98-107); Sodium 138 mmol/L (136-145)
[2021-12-29 18:12] LABS: Potassium 3.3 mmoL/L (3.5-5.1)
[2021-12-29 18:15] LABS: Anion Gap 16.3 mEq/L (5-15); Blood Urea Nitrogen 55 mg/dl (9-20); Calcium 8.8 mg/dl (8.4-10.2); Carbon Dioxide 35 mmol/L (22.0-30.0); Creatinine Clearance Estimated 21 mL/min (50-200); Estimated Glomerular Filt Rate 15 ml/min (>60); GFR (African American) 18 ML/MIN (>60); Glucose 254 mg/dl (74-100)
--- NOTE | 2021-12-29 18:41 | PC.NURSE ---
notified Dr Corral of critical lab value at this time. Cre 4.0 pt am diuretics to be held. no other new orders.
[2021-12-30] VITALS (9 sets, daily range): BP systolic 118–146; BP diastolic 64–75; PULSE 70–80; RESP 16–21; TEMP 36.8–37.2; O2SAT 95–98; BMI 37.2
--- NOTE | 2021-12-30 03:23 | PC.NURSE ---
pt awoke feeling short of air, oxygen saturations on 4LNC is 95%, pt asked if could sit up in chair for a bit, RN got pt up to chair, oxygen saturations 96% on 4LNC call light within reach
--- NOTE | 2021-12-30 07:38 | EXP.ACUTE.PN ---
Subjective *Date: 12/30/21 *Time: 12:58 Interval history: Patient slept in chair last night as he is short of breath when he lays down. States has been going on for over a year. Did not wear BiPAP per his request. Remains afebrile. No chest pain, nausea, vomiting. States he is feeling much better today. Labs reviewed, kidney function still elevated but improving. Medical Exam Vital signs and Labs for Last 24 Hours: Vital Signs Temp Pulse Pulse Resp BP Pulse Ox 12/30/21 06:38 95 12/30/21 04:00 76 12/30/21 04:00 98.9 F 76 18 123/67 97 12/30/21 00:00 97 12/30/21 00:00 70 12/30/21 00:00 98.3 F 75 20 146/69 H 95 12/29/21 23:34 98 12/29/21 20:00 80 12/29/21 20:00 98.3 F 78 18 138/67 98 12/29/21 16:00 70 12/29/21 16:00 98.4 F 73 16 144/70 H 99 12/29/21 16:00 99 12/29/21 14:00 72 22 120/55 L 97 12/29/21 12:00 98.2 F 12/29/21 12:00 60 12/29/21 08:00 90 12/29/21 12:00 69 20 126/66 100 12/29/21 10:00 79 22 121/58 L 95 12/29/21 08:00 88 22 127/74 94 L 12/29/21 07:50 73 93 L 12/29/21 08:00 100 12/29/21 08:00 97.5 F L Intake and Output 12/29/21 12/29/21 12/30/21 15:59 23:59 07:59 Intake Total 720 / 1460 530 / 1460 120 / 120 Output Total 1300 / 3265 515 / 3265 625 / 625 Balance -580 / -1805 15 / -1805 -505 / -505 Intake: Intake, Oral Amount 720 / 1360 480 / 1360 120 / 120 Intake, Total IV Amount 50 / 100 Cefepime HCl 1 gm In 0.9 % 50 / 100 Sodium Chloride 50 ml @ 100 mls /hr IV Q12H [facility] Rx#:[id number] Output: Output, Urine Amount 1300 / 3265 515 / 3265 625 / 625 Other: Number of Unmeasured Voids 0 0 0 Weight 101.86 kg 101.35 kg Patient Weight 12/30/21 23:59 Weight 101.35 kg Laboratory Results - last 24 hr 12/29/21 05:45: PTH Intact 125.8 H 12/29/21 05:45: 25-OH Vitamin D Total 40.3 12/29/21 12:29: POC Glucose 305 H* 12/29/21 17:10: POC Glucose 272 H 12/29/21 17:44: Sodium 138, Potassium 3.3 L, Chloride 90 L, Carbon Dioxide 35 H, Anion Gap 16.3 H, BUN 55 H, Creatinine 4.00 H, Estimated Creat Clear 21, Estimated GFR 15 L*, Est GFR ( Amer) 18 L*, Glucose 254 H D, Calcium 8.8 I & O for Labs for Last 24 Hours: Intake & Output 12/27/21 12/28/21 12/29/21 12/30/21 23:59 23:59 23:59 23:59 Intake Total 845 / 885 1340 / 1460 120 / 120 Output Total 3650 / 3650 2965 / 3265 625 / 625 Balance -2805 / -2765 -1625 / -1805 -505 / -505 Weight 149.685 kg 149 kg 101.86 kg 101.35 kg Microbiology Reports for the Last 24 Hours: Microbiology 12/27/21 17:42 Blood Blood Culture - Preliminary NO GROWTH AFTER 48 HOURS 12/27/21 17:42 Blood Blood Culture - Preliminary NO GROWTH AFTER 48 HOURS 12/27/21 18:01 Sputum - Endotracheal Tube Aspirate Gram Stain - Final 12/27/21 18:01 Sputum - Endotracheal Tube Aspirate Sputum Culture - Preliminary 12/28/21 04:00 Urine,Catheterized Urine Culture - Preliminary NO GROWTH AFTER 24 HOURS Constitutional: Present mild distress, morbidly obese and chronically ill appearing Head: Present atraumatic and normocephalic ENT: Present normal exam Neck: Present normal inspection Respiratory: Present wheezes, crackles and normal respiratory effort; Absent accessory muscle use or rhonchi Cardiac: Present Reg Rate and Rhythm GI: Present normal bowel sounds; Absent tenderness Extremities: Present normal inspection, full ROM and edema Skin: Present intact; Absent erythema Neuro: Present Grossly Intact, alert, awake, oriented x 3 and moves all extremities Assessment and Plan *Assessment and plan (1) Acute on chronic respiratory failure with hypoxia and hypercapnia: Status: Acute Category: Medical Code(s): J96.21 - Acute and chronic respiratory failure with hypoxia; J96.22 - Acute and ch
[2021-12-30 07:56] LABS: Basophils # 0.1 K/mm3 (0-0.2); Basophils % 0.6 % (0.1-2.0); Eosinophils # 0.5 K/mm3 (0.0-0.4); Eosinophils % 4.3 % (0.1-12.0); Hematocrit 37.3 % (42.0-52.0); Lymphocytes # 2.6 K/mm3 (0.7-4.5); Mean Corpuscular HGB Conc 32.2 g/dL (31.8-35.4); Mean Corpuscular Hemoglobin 28.6 pg (27.0-31.2); Mean Corpuscular Volume 88.9 fl (80-94); Mean Platelet Volume 9.4 fl (7.4-10.4); Monocytes # 0.6 K/mm3 (0.1-1.0); Monocytes % 5.3 % (1.7-9.3); Neutrophils # 6.9 K/mm3 (1.8-7.8); Neutrophils % 64.8 % (37.0-80.0); Platelet Count 259 K/mm3 (142-424); Red Blood Count 4.19 M/mm3 (4.60-6.20); White Blood Count 10.6 K/mm3 (4.8-10.8)
[2021-12-30 08:06] LABS: Anion Gap 15.1 mEq/L (5-15); Blood Urea Nitrogen 60 mg/dl (9-20); Carbon Dioxide 32 mmol/L (22.0-30.0); Chloride 91 mmol/L (98-107); Creatinine Clearance Estimated 23 mL/min (50-200); Estimated Glomerular Filt Rate 16 ml/min (>60); GFR (African American) 19 ML/MIN (>60); Glucose 177 mg/dl (74-100); Potassium 3.1 mmoL/L (3.5-5.1); Sodium 135 mmol/L (136-145)
--- NOTE | 2021-12-30 09:51 | EXP.PHA.PN ---
Subjective *Date: 12/30/21 *Time: 09:55 Medical Exam Vital signs and Labs for Last 24 Hours: Vital Signs Temp Pulse Pulse Resp BP Pulse Ox 12/30/21 08:00 98.8 F 79 20 125/71 97 12/30/21 06:38 95 12/30/21 04:00 76 12/30/21 04:00 98.9 F 76 18 123/67 97 12/30/21 00:00 97 12/30/21 00:00 70 12/30/21 00:00 98.3 F 75 20 146/69 H 95 12/29/21 23:34 98 12/29/21 20:00 80 12/29/21 20:00 98.3 F 78 18 138/67 98 12/29/21 16:00 70 12/29/21 16:00 98.4 F 73 16 144/70 H 99 12/29/21 16:00 99 12/29/21 14:00 72 22 120/55 L 97 12/29/21 12:00 98.2 F 12/29/21 12:00 60 12/29/21 12:00 69 20 126/66 100 12/29/21 10:00 79 22 121/58 L 95 Intake and Output 12/29/21 12/30/21 12/30/21 23:59 07:59 15:59 Intake Total 530 / 1460 120 / 600 480 / 600 Output Total 515 / 3265 625 / 625 Balance 15 / -1805 -505 / -25 480 / -25 Intake: Intake, Oral Amount 480 / 1360 120 / 600 480 / 600 Intake, Total IV Amount 50 / 100 Cefepime HCl 1 gm In 0.9 % 50 / 100 Sodium Chloride 50 ml @ 100 mls /hr IV Q12H [facility] Rx#:[id number] Output: Output, Urine Amount 515 / 3265 625 / 625 Other: Number of Unmeasured Voids 0 0 Weight 101.35 kg Patient Weight 12/30/21 23:59 Weight 101.35 kg Laboratory Results - last 24 hr 12/29/21 05:45: PTH Intact 125.8 H 12/29/21 12:29: POC Glucose 305 H* 12/29/21 17:10: POC Glucose 272 H 12/29/21 17:44: Sodium 138, Potassium 3.3 L, Chloride 90 L, Carbon Dioxide 35 H, Anion Gap 16.3 H, BUN 55 H, Creatinine 4.00 H, Estimated Creat Clear 21, Estimated GFR 15 L*, Est GFR ( Amer) 18 L*, Glucose 254 H D, Calcium 8.8 12/30/21 06:44: WBC 10.6, RBC 4.19 L, Hgb 12.0 L, Hct 37.3 L, MCV 88.9, MCH 28.6, MCHC 32.2, RDW 14.0, Plt Count 259, MPV 9.4, Neut % (Auto) 64.8, Lymph % (Auto) 25.0, [place] % (Auto) 5.3, Eos % (Auto) 4.3, Baso % (Auto) 0.6, Neut # (Auto) 6.9, Lymph # (Auto) 2.6, [place] # (Auto) 0.6, Eos # (Auto) 0.5 H, Baso # (Auto) 0.1 12/30/21 06:44: Sodium 135 L, Potassium 3.1 L, Chloride 91 L, Carbon Dioxide 32 H, Anion Gap 15.1 H, BUN 60 H, Creatinine 3.70 H, Estimated Creat Clear 23, Estimated GFR 16 L*, Est GFR ( Amer) 19 L*, Glucose 177 H D, Calcium 9.0, Magnesium 2.0 I & O for Labs for Last 24 Hours: Intake & Output 12/27/21 12/28/21 12/29/21 12/30/21 23:59 23:59 23:59 23:59 Intake Total 845 / 885 1340 / 1460 600 / 600 Output Total 3650 / 3650 2965 / 3265 625 / 625 Balance -2805 / -2765 -1625 / -1805 -25 / -25 Weight 149.685 kg 149 kg 101.86 kg 101.35 kg Microbiology Reports for the Last 24 Hours: Microbiology 12/27/21 18:01 Sputum - Endotracheal Tube Aspirate Gram Stain - Final 12/27/21 18:01 Sputum - Endotracheal Tube Aspirate Sputum Culture - Preliminary Gram Positive Cocci 12/28/21 04:00 Urine,Catheterized Urine Culture - Final NO GROWTH AFTER 48 HOURS 12/27/21 17:42 Blood Blood Culture - Preliminary NO GROWTH AFTER 48 HOURS 12/27/21 17:42 Blood Blood Culture - Preliminary NO GROWTH AFTER 48 HOURS The patient's infection will respond to the chosen ABx?: Yes Is the patient receiving the right drug, dose, and route?: Yes Could a more targeted ABx be ordered?: No
[2021-12-30 11:43] LABS: POC Glucose,Bedside 174 (70-110)
[2021-12-30 11:43] LABS: POC Glucose,Bedside 322 (70-110)
[2021-12-30 11:43] LABS: POC Glucose,Bedside 257 (70-110)
--- NOTE | 2021-12-30 13:11 | EXP.PHA.CONS ---
Pharmacy Consult Date: 12/30/21 Time: 13:11 Referring provider: DR. JONES Reason for Consult:: VANCOMYCIN DOSING Allergies Allergy/AdvReac Type Severity Reaction Status Date / Time clopidogrel [From Plavix] AdvReac Severe Chest Pain Verified 12/05/21 13:00 morphine AdvReac Intermediate Unknown Verified 12/05/21 13:00 allergy reaction promethazine AdvReac Intermediate Vomiting Verified 12/05/21 13:00 ranolazine [From Ranexa] AdvReac Intermediate Vomiting Verified 12/05/21 13:00 aspirin [From Kathleen Aspirin] AdvReac Mild Abdominal Verified 12/05/21 13:00 Pain Home Medications Medication Instructions Recorded Confirmed Type furosemide 80 mg tablet 80 mg PO DAILY Fluid 30 days #30 03/19/19 12/28/21 Rx tabs insulin glargine 100 unit/mL (3 40 unit SQ HS Diabetes 07/15/19 12/28/21 History mL) subcutaneous pen aspirin 325 mg tablet 325 mg PO DAILY HEART HEALTH 12/05/21 12/28/21 History atorvastatin 40 mg tablet 40 mg PO HS Cholesterol #90 tabs 12/11/21 12/28/21 Rx carvedilol 25 mg tablet 25 mg PO BID Hypertension 12/28/21 12/28/21 History diltiazem HCl 240 mg 240 mg PO DAILY rate control 12/28/21 12/28/21 History capsule,extended release 24 hr (Cartia XT) fenofibrate micronized 200 mg 200 mg PO DAILY hyperlipidemia 12/28/21 12/28/21 History capsule insulin lispro 100 unit/mL See Rx Instructions .Route 12/28/21 12/28/21 History subcutaneous solution (Humalog .COMPLEX Diabetes U-100 Insulin) metolazone 2.5 mg tablet 2.5 mg PO DAILY Edema 12/28/21 12/28/21 History bumetanide 1 mg tablet 2 mg PO DAILY 30 days #60 tabs 12/30/21 Rx levofloxacin 500 mg tablet 500 mg PO DAILY 1 day #1 tab 12/30/21 Rx New Prescriptions to Start Prescriptions: bumetanide Evan Jones levofloxacin Evan Jones Height: 1.65 m Weight: 101.35 kg Laboratory Results:: Laboratory Results - last 24 hr 12/29/21 17:10: POC Glucose 272 H 12/29/21 17:44: Sodium 138, Potassium 3.3 L, Chloride 90 L, Carbon Dioxide 35 H, Anion Gap 16.3 H, BUN 55 H, Creatinine 4.00 H, Estimated Creat Clear 21, Estimated GFR 15 L*, Est GFR ( Amer) 18 L*, Glucose 254 H D, Calcium 8.8 12/29/21 21:07: POC Glucose 257 H 12/30/21 06:22: POC Glucose 174 H 12/30/21 06:44: WBC 10.6, RBC 4.19 L, Hgb 12.0 L, Hct 37.3 L, MCV 88.9, MCH 28.6, MCHC 32.2, RDW 14.0, Plt Count 259, MPV 9.4, Neut % (Auto) 64.8, Lymph % (Auto) 25.0, [place] % (Auto) 5.3, Eos % (Auto) 4.3, Baso % (Auto) 0.6, Neut # (Auto) 6.9, Lymph # (Auto) 2.6, [place] # (Auto) 0.6, Eos # (Auto) 0.5 H, Baso # (Auto) 0.1 12/30/21 06:44: Sodium 135 L, Potassium 3.1 L, Chloride 91 L, Carbon Dioxide 32 H, Anion Gap 15.1 H, BUN 60 H, Creatinine 3.70 H, Estimated Creat Clear 23, Estimated GFR 16 L*, Est GFR ( Amer) 19 L*, Glucose 177 H D, Calcium 9.0, Magnesium 2.0 12/30/21 11:18: POC Glucose 322 H* Medical History: Medical History (Updated 12/28/21 @ 17:28 by Evan Jones MD) Atherosclerosis Chronic kidney disease CKD (chronic kidney disease) stage 3, GFR 30-59 ml/min Colon cancer Colon cancer high risk Congestive heart failure of unknown etiology Diabetes mellitus type 2 in obese LBBB (left bundle branch block) Obesity Peripheral edema Pulmonary vascular congestion Sleep apnea SOBOE (shortness of breath on exertion) Assessment and Plan Assessment and plan all Dx Assessment and Plan for all problems:: Pharmacokinetic dosing service Age: 81 yo Serum creatinine: 3.7 mg/dL Height: 65.0 Inches Weight (kg): 101 Assessment: IBW (kg): 61.50 Dosing wt(kg): 101 Estimated Creatinine clearance (ml/min): 13.9 CRCL method: Cockcroft and Gault using ibw(default). Drug selected: Vancomycin Loading dose (mg): 0 Vd (liters): 80.8 (factor used: 0.8 L/kg) Scott (hr-1): 0.016 Half life (hrs): 43.32 Recommended dose: 1500 mg Interval: 48 hrs Infusion time (hrs): 2.0 P
--- NOTE | 2021-12-30 16:23 | EXP.DC.SUM ---
General Admission date:: 12/27/21 Discharge date: 12/31/21 HPI HPI HPI: Mr. Augustine is a 81-year-old male with a past medical history of CKD stage 3, Grade 1 Diastolic CHF with EF 50%, Diabetes Mellitus, CAD. He presented to [facility] by EMS due to acute respiratory failure. Per ER records and discussion with ER attending the patient went to the grocery store and became very short of air. He called 911. On arrival to the patient's home EMS found that the patient was very hypoxic and placed the patient on supplemental oxygen. On arrival to our ER the patient was found to be very bradycardic with a HR in the 30's and he was extremely hypoxic with oxygen saturations in the 30's. He was intubated, given diuretics and had santo catheter placed and placed on a nitroglycerin gtt, he was also very hypertensive. He then self-extubed. He was seen in the ER on BIPAP ventilation following his self-extubation. He reports feeling better. He reports that he lives alone. He has significant bilateral lower extremity edema on exam and course crackles in his lungs, he is also noted to be bradycardic and has a significant leukocysotis. The patient will be admitted with initial impression: Acute Hypoxic and Hypercapnic Respiratory Failure and SIRS. He will be transitioned from the ER to a step-down unit. Hospital Course Hospital Course Hospital Course: 81-year-old male with past medical history of CKD stage 4, Diastolic CHF, CAD, DM, JASMYN who presents with acute onset of shortness of air, associated with bilateral lower extremity edema and pulmonary edema, requiring intubation.? 3 to 4 L nasal cannula daily.? Showing improvement.? Monitoring for improvement in renal function at this time.? Still requires inpatient management.? Cardiology consulted and involved in care.? Problems addressed as follows: Acute on chronic Hypoxic and Hypercapnic Respiratory Failure JASMYN Volume overload -Patient had a very complex admission with initial intubation, self extubation, transfer to BiPAP. Rapidly weaned oxygen requirement to nasal cannula oxygen. Responded well to diuresis with 1 to 2 L negative daily. Creatinine initially at baseline with a bump during admission up to 4. Improved to 3.4 on day of discharge. Continues to necessitate diuresis/daily diuretic use because of volume overload. Discharged home on Bumex 1 mg daily. No other changes made to heart failure medications. Continues to require oxygen, plan for 4 L with his CPAP at night and 2 L during the day continuous as needed. No cultures positive during admission. Finished treatment with oral antibiotics for COPD exacerbation versus pneumonia as possible etiology for his acute on chronic hypoxemic respiratory failure in the setting of concurrent volume overload/CHF. Single dose of Levaquin to be taken 01/01 renally dosed. CHF exacerbation - cardiology consulted, appreciate their recs. Formal read of echocardiogram with EF 45 to 50%. First-degree heart block. Chest x-ray on arrival showed significant ulmonary/vascular congestion. Responded well to diuresis. Continue carvedilol and diltiazem. Hold on metolazone at discharge. Plan to follow-up with cardiology in the coming weeks CKD - creatinine down to 3.4. Improved from 4. Baseline 2.5-3. Established with nephrology, has a follow-up appointment on January 11 per his report.? Sees them at [facility].? Patient states he has no interest in dialysis. PTH 25, improved from previous check. vitamin D within a normal range. Repeat labs in 1 week. Diabetes - Treated with Sliding scale insulin, fingersticks before meals and at bedtime, and lantus at reduced dose during admission. Resume home regimen at [place]. Stable for discharge home to continue supplemental oxygen and treatment for fluid management with Bumex. Patient has follow-up in less than 2 weeks with nephrology. Would benefit from repeat labs in the next week to franc
[2021-12-30 17:11] LABS: POC Glucose,Bedside 217 (70-110)
--- NOTE | 2021-12-30 20:14 | PC.NURSE ---
got pt back to bed from chair, call light within reach
[2021-12-31] VITALS (8 sets, daily range): BP systolic 105–142; BP diastolic 60–72; PULSE 65–90; RESP 14–20; TEMP 36.8–37.2; O2SAT 96–100; BMI 37.4
[2021-12-31 08:07] LABS: Basophils # 0.1 K/mm3 (0-0.2); Basophils % 0.7 % (0.1-2.0); Eosinophils # 0.5 K/mm3 (0.0-0.4); Eosinophils % 5.2 % (0.1-12.0); Hematocrit 36.2 % (42.0-52.0); Hemoglobin 11.7 g/dL (14.1-18.0); Lymphocytes # 3.1 K/mm3 (0.7-4.5); Lymphocytes % 34.9 % (10-50); Mean Corpuscular HGB Conc 32.2 g/dL (31.8-35.4); Mean Corpuscular Hemoglobin 28.9 pg (27.0-31.2); Mean Corpuscular Volume 89.7 fl (80-94); Mean Platelet Volume 8.7 fl (7.4-10.4); Monocytes # 0.5 K/mm3 (0.1-1.0); Neutrophils # 4.7 K/mm3 (1.8-7.8); Neutrophils % 53.1 % (37.0-80.0); Platelet Count 266 K/mm3 (142-424); Red Blood Count 4.04 M/mm3 (4.60-6.20); White Blood Count 8.9 K/mm3 (4.8-10.8)
[2021-12-31 08:16] LABS: Anion Gap 15.5 mEq/L (5-15); Blood Urea Nitrogen 63 mg/dl (9-20); Carbon Dioxide 33 mmol/L (22.0-30.0); Chloride 92 mmol/L (98-107); Creatinine Clearance Estimated 25 mL/min (50-200); Estimated Glomerular Filt Rate 18 ml/min (>60); GFR (African American) 21 ML/MIN (>60); Glucose 137 mg/dl (74-100); Potassium 3.5 mmoL/L (3.5-5.1); Sodium 137 mmol/L (136-145)
[2021-12-31 12:47] LABS: POC Glucose,Bedside 252 (70-110)
--- NOTE | 2021-12-31 13:10 | HMH.PHAINT1 ---
Pharmacy Intervention Comments: Discharge counseling completed at bedside with the patient. Discussed new medications (levofloxacin and bumetanide), continued medications, and discontinued medications (fenofibrate, furosemide, and metolazone). Overviewed indications and possible side effects/mitigation strategies for each new medication. Patient verbalized his understanding and had no questions or concerns at this time. -Geni Worthy, PharmD Candidate 2022
[2021-12-31 16:46] LABS: POC Glucose,Bedside 146 (70-110)
[2021-12-31 16:46] LABS: POC Glucose,Bedside 281 (70-110)
--- NOTE | 2021-12-31 16:50 | PC.NURSE ---
Have called and spoke with mireya cavazos, who stated there is no [facility] on sundays. Have called EMS as well, and awaiting Paola to call back. Have also called number in chart and person stated it was the wrong number. VSS.
[2021-12-31 18:10] LABS: POC Glucose,Bedside 360 (70-110)
--- NOTE | 2021-12-31 19:18 | PC.NURSE ---
D/C cancelled and Dr. Corral aware of pt not having a ride home. Will plan for disposition in the am.
[2022-01-01] VITALS: BP 123/66; PULSE 74; PULSE 75; RESP 20; TEMP 36.9; O2SAT 99
[2022-01-01 04:00] VITALS: BP 156/63; PULSE 72; PULSE 77; RESP 19; TEMP 37.1; O2SAT 99
[2022-01-01 05:00] VITALS: BMI 37.1
[2022-01-01 06:36] LABS: Basophils # 0.1 K/mm3 (0-0.2); Basophils % 0.8 % (0.1-2.0); Eosinophils # 0.4 K/mm3 (0.0-0.4); Eosinophils % 4.8 % (0.1-12.0); Hematocrit 37.1 % (42.0-52.0); Lymphocytes # 2.6 K/mm3 (0.7-4.5); Lymphocytes % 31.4 % (10-50); Mean Corpuscular HGB Conc 32.3 g/dL (31.8-35.4); Mean Corpuscular Hemoglobin 29.4 pg (27.0-31.2); Monocytes # 0.6 K/mm3 (0.1-1.0); Monocytes % 6.8 % (1.7-9.3); Neutrophils # 4.7 K/mm3 (1.8-7.8); Neutrophils % 56.2 % (37.0-80.0); Platelet Count 245 K/mm3 (142-424); Red Blood Count 4.08 M/mm3 (4.60-6.20); Red Cell Distribution Width 13.9 % (11.5-17.5); White Blood Count 8.3 K/mm3 (4.8-10.8)
[2022-01-01 07:34] LABS: Anion Gap 20.4 mEq/L (5-15); Blood Urea Nitrogen 69 mg/dl (9-20); Carbon Dioxide 26 mmol/L (22.0-30.0); Chloride 93 mmol/L (98-107); Creatinine Clearance Estimated 27 mL/min (50-200); Estimated Glomerular Filt Rate 19 ml/min (>60); GFR (African American) 23 ML/MIN (>60); Glucose 125 mg/dl (74-100); Potassium 4.4 mmoL/L (3.5-5.1); Sodium 135 mmol/L (136-145)
[2022-01-01 08:00] VITALS: PULSE 90
[2022-01-01 09:42] VITALS: BP 130/67; PULSE 84; RESP 18; TEMP 36.9; O2SAT 99
[2022-01-01 12:00] VITALS: PULSE 81
[2022-01-01 14:47] LABS: Vancomycin,Trough 11.5 ug/mL (5.0-10.0)
--- NOTE | 2022-01-01 16:40 | CARE MANAGER ---
Patient unable to discharge over the weekend due to no transportation available. I have set up for patient to discharge home with transportation through [facility]. Patient will be private pay, and he is aware.
[2022-01-01 17:58] LABS: POC Glucose,Bedside 255 (70-110)
[2022-01-02 00:03] LABS: POC Glucose,Bedside 139 (70-110)
[2022-01-02 00:03] LABS: POC Glucose,Bedside 212 (70-110)
--- NOTE | 2022-01-02 15:38 | CARE MANAGER ---
Attempted post-discharge phone interview, no answer and mailbox is full.
--- NOTE | 2022-01-03 16:07 | CARE MANAGER ---
Spoke with patient to [facility] know sputum came back with MSSA, Clindamycin called to [facility] from pharmacy.
[2022-01-14 18:11] LABS: MRSA DNA PCR Negative
== END 2022-01-01 15:13 | disposition home or self-care (01) | DRG 291 ==
LOC: ER 20:17 → 2ND 21:20
PROVIDERS: Nurse Practitioner Family; Admitting Provider Internal Medicine Adolescent Medicine; Emergency Provider Emergency Medicine; PCP Emergency Medicine; Visit Provider Internal Medicine Adolescent Medicine
DX: I50.23 Acute on chronic systolic (congestive) heart failure (principal); J96.02 Acute respiratory failure with hypercapnia; J96.21 Acute and chronic respiratory failure with hypoxia; J96.22 Acute and chronic respiratory failure with hypercapnia; N18.4 Chronic kidney disease, stage 4 (severe); I25.10 Atherosclerotic heart disease of native coronary artery without angina pectoris; I10 Essential (primary) hypertension; E78.2 Mixed hyperlipidemia; Z85.038 Personal history of other malignant neoplasm of large intestine; E11.69 Type 2 diabetes mellitus with other specified complication; Z68.37 Body mass index [BMI] 37.0-37.9, adult; E11.22 Type 2 diabetes mellitus with diabetic chronic kidney disease
CPT/HCPCS: 36415; 51702; 71045; 80048; 80053; 80061; 80202; 81001; 82306; 82803; 82962; 83605; 83735; 83880; 83970; 84484; 85007; 85025; 87040; 87070; 87077; 87086; 87186; 87205; 87641; 93005; 93306; 94660; 94761; 99291; C9803; J0692; J1956; J3370; U0003; U0005

== ENCOUNTER → 2022-01-08 09:14 | Outpatient (CLI) | payer MEDICARE, SELFPAY ==
[2022-01-08 10:06] LABS: Basophils # 0.1 K/mm3 (0-0.2); Basophils % 0.7 % (0.1-2.0); Eosinophils # 0.5 K/mm3 (0.0-0.4); Eosinophils % 3.9 % (0.1-12.0); Hemoglobin 12.3 g/dL (14.1-18.0); Lymphocytes # 2.9 K/mm3 (0.7-4.5); Lymphocytes % 24.5 % (10-50); Mean Corpuscular HGB Conc 31.4 g/dL (31.8-35.4); Mean Corpuscular Hemoglobin 28.9 pg (27.0-31.2); Mean Corpuscular Volume 91.8 fl (80-94); Mean Platelet Volume 7.9 fl (7.4-10.4); Monocytes # 0.5 K/mm3 (0.1-1.0); Monocytes % 3.9 % (1.7-9.3); Platelet Count 385 K/mm3 (142-424); Red Blood Count 4.25 M/mm3 (4.60-6.20); Red Cell Distribution Width 13.6 % (11.5-17.5); White Blood Count 11.9 K/mm3 (4.8-10.8)
[2022-01-08 10:49] LABS: Albumin Level 3.8 g/dl (3.5-5.0); Anion Gap 19.3 mEq/L (5-15); Blood Urea Nitrogen 54 mg/dl (9-20); Calcium 9.6 mg/dl (8.4-10.2); Carbon Dioxide 31 mmol/L (22.0-30.0); Chloride 89 mmol/L (98-107); Estimated Glomerular Filt Rate 21 ml/min (>60); GFR (African American) 25 ML/MIN (>60); Glucose 293 mg/dl (74-100); Phosphorous 5.1 mg/dl (2.5-4.5); Potassium 4.3 mmoL/L (3.5-5.1); Sodium 135 mmol/L (136-145)
[2022-01-08 11:00] LABS: Intact Parathyroid Hormone 33.4 pg/mL (7.5-53.5)
[2022-01-08 11:05] LABS: 25-OH Vitamin D, Total 46.3 ng/mL (30-100)
== END ==
PROVIDERS: PCP Internal Medicine Nephrology; Visit Provider Nurse Practitioner
DX: N18.4 Chronic kidney disease, stage 4 (severe) (principal); I10 Essential (primary) hypertension; E21.3 Hyperparathyroidism, unspecified; E87.70 Fluid overload, unspecified
CPT/HCPCS: 36415; 80048; 80069; 82306; 83970; 85025

== ENCOUNTER → 2022-01-19 11:33 | Outpatient (CLI) | payer MEDICARE, SELFPAY | PROVIDERS: PCP Emergency Medicine; Visit Provider Nurse Practitioner | DX: I10 Essential (primary) hypertension (principal); I25.118 Atherosclerotic heart disease of native coronary artery with other forms of angina pectoris; I50.9 Heart failure, unspecified; R06.00 Dyspnea, unspecified; R60.9 Edema, unspecified; R77.8 Other specified abnormalities of plasma proteins | CPT/HCPCS: 78452; 93017; A9502; J2785 ==

== ENCOUNTER → 2022-01-24 10:25 | Outpatient (CLI) | payer MEDICARE, SELFPAY ==
[2022-01-24 11:42] LABS: Anion Gap 12.7 mEq/L (5-15); Blood Urea Nitrogen 39 mg/dl (9-20); Carbon Dioxide 28 mmol/L (22.0-30.0); Chloride 98 mmol/L (98-107); Estimated Glomerular Filt Rate 25 ml/min (>60); GFR (African American) 30 ML/MIN (>60); Potassium 4.7 mmoL/L (3.5-5.1); Sodium 134 mmol/L (136-145)
[2022-01-24 11:50] LABS: Glucose 422 mg/dl (74-100)
== END ==
PROVIDERS: PCP Emergency Medicine; Visit Provider Nurse Practitioner Family
DX: E11.69 Type 2 diabetes mellitus with other specified complication (principal); E66.9 Obesity, unspecified; E78.2 Mixed hyperlipidemia; G47.33 Obstructive sleep apnea (adult) (pediatric); I10 Essential (primary) hypertension; I25.118 Atherosclerotic heart disease of native coronary artery with other forms of angina pectoris; N18.4 Chronic kidney disease, stage 4 (severe); R06.09 Other forms of dyspnea; Z68.37 Body mass index [BMI] 37.0-37.9, adult
CPT/HCPCS: 36415; 80048

== ENCOUNTER → 2022-03-05 09:41 | Outpatient (CLI) | payer MEDICARE, SELFPAY ==
[2022-03-05 09:51] LABS: MANUAL DIFFERENTIAL MANUAL DIFFERENTIAL (MANUAL DIFF)
[2022-03-05 10:18] LABS: Basophils # 0.1 K/mm3 (0-0.2); Basophils % 0.9 % (0.1-2.0); Eosinophils # 0.4 K/mm3 (0.0-0.4); Hematocrit 36.2 % (42.0-52.0); Hemoglobin 12.1 g/dL (14.1-18.0); Lymphocytes # 3.5 K/mm3 (0.7-4.5); Lymphocytes % 34.2 % (10-50); Mean Corpuscular HGB Conc 33.5 g/dL (31.8-35.4); Mean Corpuscular Hemoglobin 29.9 pg (27.0-31.2); Mean Corpuscular Volume 89.2 fl (80-94); Mean Platelet Volume 7.9 fl (7.4-10.4); Monocytes # 0.6 K/mm3 (0.1-1.0); Monocytes % 5.5 % (1.7-9.3); Neutrophils # 5.7 K/mm3 (1.8-7.8); Neutrophils % 55.5 % (37.0-80.0); Platelet Count 230 K/mm3 (142-424); Red Blood Count 4.06 M/mm3 (4.60-6.20); Red Cell Distribution Width 14.4 % (11.5-17.5); White Blood Count 10.2 K/mm3 (4.8-10.8)
[2022-03-05 10:41] LABS: Chloride 99 mmol/L (98-107); Sodium 137 mmol/L (136-145)
[2022-03-05 10:42] LABS: Eosinophils % 3 % (0-3); Lymphocytes % 44 % (10-50); Monocytes % 4 % (2-9); Neutrophils % 49 % (42-76); Platelet Estimate Normal; Potassium 4.3 mmoL/L (3.5-5.1); RBC Morphology Normal; Total Cells Counted 100
[2022-03-05 10:44] LABS: Blood Urea Nitrogen 33 mg/dl (9-20); Estimated Glomerular Filt Rate 26 ml/min (>60); GFR (African American) 32 ML/MIN (>60)
[2022-03-05 10:45] LABS: Anion Gap 14.3 mEq/L (5-15); Carbon Dioxide 28 mmol/L (22.0-30.0); Glucose 227 mg/dl (74-100)
== END ==
PROVIDERS: PCP Emergency Medicine; Visit Provider Internal Medicine
DX: I25.10 Atherosclerotic heart disease of native coronary artery without angina pectoris (principal); N18.4 Chronic kidney disease, stage 4 (severe)
CPT/HCPCS: 36415; 80048; 85007; 85014; 85018; 85048; 85049

== ENCOUNTER → 2022-03-12 13:54 | Outpatient (CLI) | payer MEDICARE, SELFPAY ==
[2022-03-12 16:02] LABS: Chloride 97 mmol/L (98-107); Potassium 4.5 mmoL/L (3.5-5.1); Sodium 137 mmol/L (136-145)
[2022-03-12 16:05] LABS: Anion Gap 11.5 mEq/L (5-15); Blood Urea Nitrogen 33 mg/dl (9-20); Calcium 8.4 mg/dl (8.4-10.2); Carbon Dioxide 33 mmol/L (22.0-30.0); Estimated Glomerular Filt Rate 26 ml/min (>60); GFR (African American) 32 ML/MIN (>60); Glucose 227 mg/dl (74-100)
== END ==
PROVIDERS: Physician Assistant; PCP Emergency Medicine; Visit Provider Internal Medicine
DX: E78.2 Mixed hyperlipidemia (principal); I10 Essential (primary) hypertension; I25.118 Atherosclerotic heart disease of native coronary artery with other forms of angina pectoris; I50.9 Heart failure, unspecified; N18.4 Chronic kidney disease, stage 4 (severe); R06.09 Other forms of dyspnea
CPT/HCPCS: 36415; 80048

== ENCOUNTER → 2022-04-09 10:57 | Outpatient (CLI) | payer MEDICARE, SELFPAY ==
[2022-04-09 11:25] LABS: Microscopic, Urine URINE MICROSCOPIC (MICROSCOPIC)
[2022-04-09 11:57] LABS: Appearance,Urine CLEAR (Clear); Bilirubin,Urine Negative (Negative); Blood, Urine 1+ (Negative); Color,Urine YELLOW (Yellow); Glucose,Urine (UA) TRACE (Negative); Ketones,Urine Negative (Negative); Leukocyte Esterase,Urine Negative (Negative); Nitrate,Urine Negative (Negative); Protein,Urine 2+ (Negative); Specific Gravity, Urine 1.025 (1.005-1.030); Urobilinogen,Urine 0.2 EU/dl (0.2)
[2022-04-09 12:00] LABS: Mean Corpuscular HGB Conc 33.2 g/dL (31.8-35.4); Mean Corpuscular Hemoglobin 29.8 pg (27.0-31.2); Mean Corpuscular Volume 89.7 fl (80-94); Platelet Count 220 K/mm3 (142-424); Red Blood Count 3.68 M/mm3 (4.60-6.20); Red Cell Distribution Width 14.2 % (11.5-17.5); White Blood Count 8.8 K/mm3 (4.8-10.8)
[2022-04-09 12:21] LABS: Albumin Level 3.4 g/dl (3.5-5.0); Anion Gap 4.6 mEq/L (5-15); Blood Urea Nitrogen 53 mg/dl (9-20); Calcium 8.4 mg/dl (8.4-10.2); Carbon Dioxide 31 mmol/L (22.0-30.0); Chloride 102 mmol/L (98-107); Estimated Glomerular Filt Rate 23 ml/min (>60); GFR (African American) 28 ML/MIN (>60); Glucose 125 mg/dl (74-100); Phosphorous 4.4 mg/dl (2.5-4.5); Potassium 3.6 mmoL/L (3.5-5.1); Sodium 134 mmol/L (136-145)
[2022-04-09 12:39] LABS: WBC,Urine Occasional #/hpf (0-3)
[2022-04-09 12:40] LABS: Squamous Epithelial Cell,Urine Occasional #/hpf (0-5)
[2022-04-09 14:27] LABS: Creatinine,Urine Random 65 mg/dL (Not Estab.)
== END ==
PROVIDERS: PCP Emergency Medicine; Visit Provider Internal Medicine Nephrology
DX: N18.4 Chronic kidney disease, stage 4 (severe) (principal)
CPT/HCPCS: 36415; 80069; 81001; 82570; 84155; 85014; 85018; 85048; 85049

== ENCOUNTER → 2022-04-12 14:55 | Outpatient (POV) | payer MEDICARE, SELFPAY | PROVIDERS: Visit Provider Internal Medicine Nephrology | DX: Z00.00 Encounter for general adult medical examination without abnormal findings (principal) ==